=== PATIENT | female | born 1945 | race Caucasian/White ===

== ENCOUNTER 2019-08-08 15:03 | Inpatient (IN) | payer MEDICARE, SELFPAY ==
[2019-08-08] VITALS (10 sets, daily range): BP systolic 128–147; BP diastolic 46–95; PULSE 76–87; RESP 16–21; TEMP 36.4–37.3; O2SAT 94–98
--- NOTE | ~2019-08-08 | US_ITS ---
EXAMINATION:US venous doppler LE BI INDICATION:Leg edema TECHNIQUE: Multiple grayscale, color flow and Doppler images of the lower extremity deep venous syste ms were obtained and reviewed. COMPARISON:No prior studies for comparison. FINDINGS: The common femoral, superficial femoral and popliteal veins demonstrate normal respiratory variation, augmentation and compressibility. Color flow is also seen within the posterior tibial, pe roneal, greater saphenous and profunda veins. IMPRESSION: 1: No lower extremity deep venous thrombosis. Reviewed, dictated and finalized at location A.
--- NOTE | ~2019-08-08 | XR_ITS ---
XR chest 1V portable DATE: 08/08/2019 15:46 INDICATION: Shortness of breath and fever for 3 weeks. Cough, congestion. TECHNIQUE: Portable upright AP chest on 08/08/2019 at 1547 hours COMPARISON: 04/06/2018 2 view chest 04/09/2018 CT chest FINDINGS: There is prominent elevation of the right leaf of the diaphragm and/or subpulmonic pleural fluid there is infiltrate and atelectasis in the right mid to lower lung. The left lung is clear. No left pleural effusion is evident. Heart size appears normal. Aortic calcification. No hilar or mediastinal enlargement is noted. Diffuse osteopenia. IMPRESSION: Elevated right diaphragm and/or right subpulmonic pleural fluid Right mid to lower lung infiltrate and/atelectasis Reviewed, dictated and finalized at location A.
--- NOTE | 2019-08-08 15:23 | ECG_ITS ---
Measurements Intervals [place] Rate: 82 P: 68 MN: 134 QRS: -15 QRSD: 97 T: 49 QT: 386 QTc: 452 Interpretive Statements SINUS RHYTHM ATRIAL PREMATURE COMPLEXES POSSIBLE LEFT ATRIAL ENLARGEMENT DELAYED PRECORDIAL R/S TRANSITION BASELINE ARTIFACT- I, II, III, AVR, AVL, AVF, V1-V6 BORDERLINE ECG Electronically Signed On 08-08-2019 16:09:30 CDT by Honorio Mccarthy D.O.
[2019-08-08 16:00] LABS: Basophils Percent Auto 0.2 % (0.2-1.2); Eosinophils Percent Auto 0.1 % (0-4.4); Hematocrit 29.1 % (37.0-47.0); Hemoglobin 9.7 g/dL (12.0-15.0); Immature Granulocyte Absolute 0.17 K/mm3 (0.00-0.031); Immature Granulocyte Percent A 0.9 % (0-0.5); Lymphocytes Absolute Auto 0.93 K/mm3 (0.9-3.2); Mean Corpuscular HGB Conc 33.3 g/dl (32-36); Mean Corpuscular Hemoglobin 28.4 pg (26-34); Mean Corpuscular Volume 85.1 fl (80-100); Mean Platelet Volume 9.9 fl (7.4-10.4); Monocytes Absolute Auto 1.3 K/mm3 (0.1-0.6); Monocytes Percent Auto 7.2 % (2.6-8.5); Neutrophils Absolute Auto 16.2 K/mm3 (1.3-6.7); Neutrophils Percent Auto 86.6 % (45.5-73.1); Platelet Count Result 412 k/mm3 (150-375); Red Blood Count 3.42 M/mm3 (4.2-5.4); Red Cell Distribution Width 13.9 % (11.5-14.5); White Blood Count 18.7 K/mm3 (4.5-10.0)
--- NOTE | 2019-08-08 16:03 | ED.FEVER ---
HPI - Fever General Chief Complaint: Fever Stated Complaint: fever Time Seen by Provider: 08/08/19 15:22 History of Present Illness HPI Narrative: Patient presents with 3 weeks of off-and-on fever. Up to 100.2. She has had shortness of breath and cough, with sputum production. She is also had swelling in her lower legs and feet for 4-week. She has no sores, no urinary frequency or dysuria. She has had no wheezing, despite her COPD?asthma. Her appetite is fine, bowels are moving. She feels weak, and shortness of breath increases with any activity at all. Her mother had congestive heart failure. She has been taking ibuprofen and Tylenol for the fever. She has had chills and sweats with it. MD elicited complaint: fever, malaise and weakness Pertinent past history: other (COPD?asthma) Onset (ago): week(s) Measured temperature: 100.4 F Context: other (None) Exacerbating factors: other (Walking) Relieving factors: nothing Associated symptoms: chills, cough and other (Sweats) Treatments prior to arrival fever: none Related Data Home Medications Medication Instructions Recorded Confirmed amlodipine 5 mg tablet 5 mg PO DAILY 01/09/19 07/24/19 cholecalciferol (vitamin D3) 25 1,000 unit PO DAILY 01/09/19 07/24/19 mcg (1,000 unit) capsule fexofenadine 180 mg tablet 180 mg PO DAILY 01/09/19 07/24/19 sertraline 50 mg tablet 50 mg PO DAILY 01/09/19 07/24/19 Allergies Allergy/AdvReac Type Severity Reaction Status Date / Time azithromycin Allergy Mild Unknown Verified 08/08/19 15:09 erythromycin base Allergy Mild Unknown Verified 08/08/19 15:09 Latex, Natural Rubber Allergy Mild Rash Verified 08/08/19 15:09 Aminoglycosides Allergy Unknown Unknown Verified 08/08/19 15:09 bacitracin Allergy Unknown Unknown Verified 08/08/19 15:09 neomycin Allergy Unknown Unknown Verified 08/08/19 15:09 polymyxin B Allergy Unknown Unknown Verified 08/08/19 15:09 PLASTICS Allergy Mild Unknown Uncoded 08/08/19 15:09 Review of Systems Review of Systems: Narrative: CONSTITUTIONAL: She has had fever, chills, and sweats. EYES: Denies visual changes, redness, or discharge. ENT: Denies rhinorrhea, congestion, sore throat, or otalgia. CARDIOVASCULAR: Denies chest pain, palpitations, or edema. RESPIRATORY: She has cough and dyspnea. GASTROINTESTINAL: Denies abdominal pain, nausea, vomiting, or diarrhea. GENITOURINARY: Denies dysuria or hematuria. SKIN: Denies rash or itching. MUSCULOSKELETAL: Denies back pain, joint pain, or myalgia. NEUROLOGIC: Denies headache, numbness, or weakness. PSYCHIATRIC: Denies anxiety or depression. All systems reviewed & are unremarkable except as noted in HPI and below PMFSH Past Medical History Medical History Anxiety Basal cell carcinoma 2015 - nose Chronic neck pain COPD with asthma Environmental allergies Essential (primary) hypertension Hypertension Squamous cell carcinoma of skin of right lower extremity 2002 Vitamin D deficiency Surgical History Surgical History History of colon resection 1997 Social History Social History Smoking packs per day: 0.75 Smoking cigarettes per day: 15.0 Years smoked: 56 Smoking pack-years: 42.00 Smoking status: Current every day smoker Tobacco type: cigarettes Second hand tobacco smoke exposure: Yes Additional smoking assessment comments: maybe 5 cigarettes Alcohol intake: never Substance use: never Substance use type: does not use Gender identity (if verbalized by the patient): Female Exam Narrative: Exam Narrative: GENERAL: Well-appearing, well-nourished, and in no acute distress. HEAD: Normocephalic, atraumatic. EYES: PERRLA and EOMI. ENT: Nares clear, no rhinorrhea or epistaxis. Mucous membranes moist. NECK: Supple. CHEST: No respiratory distress. Rhonchi in the posterior right HEA
[2019-08-08 16:07] LABS: Add Urine Microscopic? YES; Appearance Urine Clear (Clear); Bacteria Urine Trace /hpf; Bilirubin Urine Negative (Negative); Blood Urine Negative (Negative); Color Urine Straw (Yellow); Glucose Urine UA Negative (Negative); Ketones Urine Negative (Negative); Leukocyte Esterase Ur 2+ LEU/UL (Negative); Nitrate Urine Negative (Negative); Protein Urine Negative (Negative); RBC Urine 0-2 /hpf (0-2); Specific Grav Ur 1.005 (1.001-1.035); Squamous Epithelial Cell Urine Occasional /hpf (Few); Urobilinogen Urine Negative mg/dL (<2.0)
[2019-08-08 16:13] LABS: INR 1.3; Prothrombin Time 15.5 Seconds (11.1-14.7)
[2019-08-08 16:13] LABS: Lactic Acid Reflex 0.7 mmol/L (0.7-2.1)
[2019-08-08 16:14] LABS: Partial Thromboplastin Time 32.2 SECONDS (22.3-36.8)
[2019-08-08 16:17] LABS: D Dimer 2.68 ug/mL (<0.48)
[2019-08-08 16:23] LABS: Alveolar/Arterial O2 Gradient 30.8 mmHg; Base Excess ABG 2.3 mEq/l (+/-2.0); Fractional Inspired Oxygen 21 %; HCO3 ABG 24.9 mEq/l (22.0-26.0); Oxygen Content ABG 14.4 %vol (16.0-22.0); Oxyhemoglobin 95.1 % THb (90.0-100.0); PCO2 ABG 31.6 mmHg (35.0-45.0); PO2 ABG 81.1 mmHg (80.0-100.0); PO2 FiO2 Ratio Arterial Blood 3.86 %; Total Hemoglobin 10.7 g/dL (12.0-18.0)
[2019-08-08 16:25] LABS: Device ROOM AIR; Modified Allen's Test Pass; Site Drawn LEFT RADIAL
[2019-08-08 16:26] LABS: NT Pro B Type Natriuretic Pept 2660 PG/ML (5-100); Troponin I < 0.012 ng/mL (0.000-0.034)
[2019-08-08 16:29] LABS: pH ABG 7.514 (7.350-7.450)
[2019-08-08 16:30] LABS: Alanine Aminotransferase 29 U/L (4-35); Albumin Level 3.1 g/dL (3.5-5.1); Alkaline Phosphatase 125 U/L (38-126); Aspartate Amino Transferase 23 U/L (14-36); Bilirubin,Total 0.8 mg/dL (0.2-1.3); Blood Urea Nitrogen 10 mg/dL (7-17); CRP 21.8 mg/dL (<1.0); Calcium 8.5 mg/dL (8.4-10.2); Carbon Dioxide 25 mmol/L (22-30); Chloride 89 mmol/L (98-107); Estimated Glomerular Filt Rate > 60; Glucose 143 mg/dL (65-105); Potassium 3.4 mmol/L (3.4-5.0); Sodium 123 mmol/L (137-145)
--- NOTE | 2019-08-08 16:47 | PC.NURSE ---
pt moved from room 4 to room 6
[2019-08-08] MEDS: FUROSEMIDE INJ 40 MG/4 ML VIAL IV PUSH (16:58)
--- NOTE | 2019-08-08 18:34 | ADMGEN ---
This patient, Radha Loja, was admitted to [facility] S[facility] Room 331-01. Patient/family oriented to hospital policies and general routines including ID bracelet, bed and alarms, visiting hours, pain management, procedures, bathroom and other care routines, personal items, smoking policy, room service/diet, and visiting hours. Valuables list has been completed. Information on how to activate the Rapid Response Team has been discussed. Patient/Family are encouraged to report perceived risks to care and to ask questions if they do not understand what they are told or what they should do.
[2019-08-08 19:48] LABS: Troponin I < 0.012 ng/mL (0.000-0.034)
[2019-08-08 22:18] LABS: Troponin I < 0.012 ng/mL (0.000-0.034)
--- NOTE | 2019-08-08 23:45 | PM.IMHP ---
H&P: HPI History of Present Illness Chief complaint: pneumonia/and new CHF/ and tested for COVID Narrative: Radha Loja is a 74 year old female who has a past medical history of asthma. The patient stated that she has had a low-grade fever on and off for 2-3 weeks. She said somewhere around 100. She has had a loose cough.She was short of breath she also had increased swelling in her lower extremities over the last 3-4 weeks. No previous history of any CHF for DVT. No sore throat or headache no body aches she has been taking ibuprofen and Tylenol for the fever. She does have chills and she has been having night sweats. Chest x-ray was read as elevated right diaphragm and or some pulmonic pleural fluid right mid to lower lung infiltrate and atelectasis. The patient is being tested for covid 19. She has not been exposed to any sick contacts. She is and lives with her son and [id number]. Ceftriaxone in the emergency room and IV Lasix. She said her feet are starting to go down with the swelling since she got the Lasix. White count is 18.7. H&H is 9.7 and 29.1. Patient has some arterial blood gases performed in her pH was 7.514 and her pCO2 was 31.6. She was placed on 2 L per nasal cannula. Sodium was 123. CRP is 21.8. BNP is 2660. Patient is being admitted for community-acquired pneumonia and possible CHF. Date of service 08/08/2019 Review of Systems Review of Systems: All systems reviewed & are unremarkable except as noted in HPI and below Constitutional: Constitutional: Reports as per HPI and Reports no additional constitutional complaints Eyes: Eyes: Reports as per HPI and Reports no additional eye complaints ENT: Reports system reviewed and no additional complaints, except as documented and Reports Normal hearing present Cardiovascular: Cardiovascular: Reports no additional cardiovascular complaints Respiratory: Respiratory: Reports no additional respiratory complaints and Reports no additional respiratory complaints Gastrointestinal: Gastrointestinal: Reports as per HPI and Reports no additional gastrointestinal complaints Musculoskeletal: Musculoskeletal: Reports no additional musculoskeletal complaints Integumentary/Breasts: Skin/Breast: Reports system reviewed and no additional complaints, except as docu and Reports as per HPI Neurologic: Reports system reviewed and no additional complaints, except as documented, Reports as per HPI and Reports Normal hearing present Psychiatric: Psychiatric: Reports no additional psychiatric complaints and Reports as per HPI Endocrine: Endocrine: Reports no additional endocrine complaints Hematologic/Lymphatic: Hematologic/Lymphatic: Reports no additional hematologic/lymphatic complaints Allergic/Immunologic: Allergic/Immunologic: Reports no additional allergic/immunologic complaints [facility] Past Medical History Medical History (Updated 08/08/19 @ 23:55 by Lorraine Burks NP) Anxiety Asthma Basal cell carcinoma 2015 - nose Chronic neck pain Colon polyps COPD with asthma Environmental allergies Essential (primary) hypertension Hypertension Squamous cell carcinoma of skin of right lower extremity 2002 Vitamin D deficiency Surgical History Surgical History (Updated 08/08/19 @ 23:51 by Lorraine Burks NP) History of colon resection 1997 due to large colon polyps History of removal of pigmented skin lesion Removed from her nose and leg 2003 and 2000 Family History Family History (Updated 08/08/19 @ 23:52 by Lorraine Burks NP) Mother Diabetes mellitus Congestive heart disease Hypertension Father Emphysema lung Sibling Diabetes mellitus Social History Social History (Updated 08/08/19 @ 23:53 by Lorraine Burks NP) Social History: The patient is she has 2 children. She smoked for about 50 + years a half pack cigarettes a day. 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 No alcohol no marijuana power health care attorney is her s
[2019-08-09] VITALS (12 sets, daily range): BP systolic 118–150; BP diastolic 47–72; PULSE 72–102; RESP 16–20; TEMP 36.4–37.5; O2SAT 91–99; BMI 26.5
--- NOTE | 2019-08-09 | ECHO_ITS ---
Patient Info Name: Radha Loja Age: 74 years : 1945 Gender: Female Ht: 63 in Wt: 150 lbs BSA: 1.76 m2 HR: 80 bpm BP: 130 / 47 mmHg Heart Rhythm: Sinus Rhythm Technical Quality: Good Exam Date: 08/09/2019 1:58 PM Exam Location: [facility] Patient Status: Inpatient Admit Date: 08/08/2019 Staff Ordering Physician: Lorraine Burks NP Concrete Block Molder: Robinson Melendrez RDCS Attending Provider: Kiah Deutsch PA-C Referring Physician: Kimmie MCKENZIE; Exam Type: CA echo doppler color flow Study Info Indications J81.0 - Acute pulmonary edema Complete two-dimensional, color flow and Doppler transthoracic echocardiogram is performed. History/Risk Factors Pneumonia; new CHF, SOB, edema, HTN. Summary 1. Left ventricular chamber size and systolic function are normal with no regional wall motion abnormalities with an estimated ejection fraction of >70%. Mild left ventricular hypertrophy and grade 2 diastolic dysfunction are noted. 2. Left atrial chamber dimension is mildly enlarged. 3. No pulmonary hypertension, estimated pulmonary arterial systolic pressure is 30 mmHg. 4. Dilated inferior vena cava with >50% collapse upon inspiration consistent with elevated right atrial pressure, 5 mmHg. 5. No significant valve disease. 6. Normal sinus rhythm. Left Ventricle Left ventricular chamber dimension is normal. Left ventricular systolic function is normal, estimated at >70%. There is mildly increased left ventricular wall thickness. Left ventricular septal wall motion is normal. The left ventricular diastolic function is grade II diastolic dysfunction. Left ventricular chamber size and systolic function are normal with no regional wall motion abnormalities with an estimated ejection fraction of >70%. Mild left ventricular hypertrophy and grade 2 diastolic dysfunction are noted. Right Ventricle Right ventricular chamber dimension is normal. Right ventricular systolic function is normal. Left Atria Left atrial chamber dimension is mildly enlarged. Right Atria Right atrial chamber dimension is normal. Aortic Valve The aortic valve is trileaflet. There is no aortic valve sclerosis. There is no aortic valve stenosis. There is no aortic valve regurgitation. Pulmonic Valve The pulmonic valve is normal. There is no pulmonic valve stenosis. There is trace pulmonic regurgitation. Mitral Valve The mitral valve has normal leaflets. There is no mitral valve stenosis. There is trace mitral valve regurgitation. Tricuspid Valve The tricuspid valve leaflets are normal. There is no significant tricuspid valve stenosis. There is trace tricuspid valve regurgitation. No pulmonary hypertension, estimated pulmonary arterial systolic pressure is 30 mmHg. Pericardium/Pleural The pericardium appears normal. There is no pericardial effusion. Inferior Vena Cava Dilated inferior vena cava with >50% collapse upon inspiration consistent with elevated right atrial pressure, 5 mmHg. Aorta The aortic root size at the sinus of Valsalva is normal. The prox ascending aorta size is normal. Left Ventricular Outflow Tract Name Value Normal LVOT 2D LVOT Diameter
[2019-08-09 07:09] LABS: Basophils Absolute Auto 0.1 K/mm3 (0.0-0.1); Basophils Percent Auto 0.4 % (0.2-1.2); Eosinophils Percent Auto 0.1 % (0-4.4); Hematocrit 28.3 % (37.0-47.0); Hemoglobin 9.5 g/dL (12.0-15.0); Immature Granulocyte Absolute 0.17 K/mm3 (0.00-0.031); Lymphocytes Absolute Auto 0.96 K/mm3 (0.9-3.2); Lymphocytes Percent Auto 5.8 % (18.3-44.2); Mean Corpuscular HGB Conc 33.6 g/dl (32-36); Mean Corpuscular Hemoglobin 28.3 pg (26-34); Mean Corpuscular Volume 84.2 fl (80-100); Mean Platelet Volume 9.7 fl (7.4-10.4); Monocytes Absolute Auto 1.5 K/mm3 (0.1-0.6); Monocytes Percent Auto 9.3 % (2.6-8.5); Neutrophils Absolute Auto 13.8 K/mm3 (1.3-6.7); Neutrophils Percent Auto 83.4 % (45.5-73.1); Platelet Count Result 415 k/mm3 (150-375); Red Blood Count 3.36 M/mm3 (4.2-5.4); Red Cell Distribution Width 13.8 % (11.5-14.5); White Blood Count 16.6 K/mm3 (4.5-10.0)
[2019-08-09 07:26] LABS: Lactic Acid 0.6 mmol/L (0.7-2.1)
[2019-08-09] MEDS: ALBUTEROL SULFATE (*SP) AEROSOL 1 PUFF 2 PUFF INHALATION ×3 (07:31→23:00)
[2019-08-09 08:06] LABS: Alanine Aminotransferase 27 U/L (4-35); Alkaline Phosphatase 110 U/L (38-126); Aspartate Amino Transferase 24 U/L (14-36); Bilirubin,Total 0.7 mg/dL (0.2-1.3); Blood Urea Nitrogen 9 mg/dL (7-17); Calcium 7.9 mg/dL (8.4-10.2); Carbon Dioxide 28 mmol/L (22-30); Chloride 85 mmol/L (98-107); Estimated CRCL calculation 69 ml/min; Estimated Glomerular Filt Rate > 60; Glucose 126 mg/dL (65-105); Magnesium 1.5 mg/dL (1.6-2.3); Sodium 122 mmol/L (137-145)
[2019-08-09] MEDS: MONTELUKAST SODIUM 10 MG TABLET PO (08:30)
[2019-08-09] MEDS: CHOLECALCIFEROL 1,000 UNIT TABLET 1000 UNITS PO (08:30)
[2019-08-09] MEDS: LORATADINE 10 MG TABLET PO (08:30)
[2019-08-09] MEDS: IRBESARTAN 150 MG TABLET BY MOUTH (08:30)
[2019-08-09] MEDS: hydrALAZINE HCL 50 MG TABLET BY MOUTH ×3 (08:30→17:14)
[2019-08-09] MEDS: PIROXICAM 10 MG CAPSULE PO (08:31)
[2019-08-09] MEDS: METOPROLOL SUCCINATE EXT REL 50 MG TABCR BY MOUTH (08:31)
[2019-08-09] MEDS: AMLODIPINE BESYLATE 5 MG TABLET PO (08:31)
[2019-08-09] MEDS: SERTRALINE HCL 50 MG TABLET PO (08:31)
[2019-08-09] MEDS: FUROSEMIDE INJ 40 MG/4 ML VIAL IV PUSH (08:31)
[2019-08-09 08:34] LABS: Thyroid Stimulating Hormone Reflex 0.964 uIU/mL (0.465-4.68)
[2019-08-09 13:02] LABS: SARS-CoV-2 RNA PCR Negative
--- NOTE | 2019-08-09 15:43 | P.PNIM_ITS ---
Progress Note: A&P Assessment and Plan (1) CAP (community acquired pneumonia): Code(s): J18.9 - Pneumonia, unspecified organism Status: Acute Assessment and Plan: She presented with cough, SOB, and fever with T-max 100.2?. Chest x-ray shows right mid to lower lung infiltrate. She complains of productive cough. WBC is 16.6. She remains afebrile. She is maintaining adequate oxygenation on room air. * Patient was initially started on Levaquin and vancomycin. Plan to transition to Rocephin and doxycycline for community-acquired pneumonia. Patient is allergic to azithromycin. * Preliminary blood cultures revealed NGTD. Await final cultures. * Sputum culture has been ordered and will attempt collection * Order urine Legionella and pneumococcal antigens * Continue supportive care with albuterol as needed and Mucinex (2) Suspected COVID-19 virus infection: Code(s): Z20.828 - Contact with and (suspected) exposure to other viral communicable d iseases Status: Acute Assessment and Plan: * Negative COVID test on 08/08/2019. (3) CHF (congestive heart failure): Qualifiers: Heart failure chronicity: unspecified Heart failure type: unspecified Qualified Code(s): I50.9 - Heart failure, unspecified Code(s): I50.9 - Heart failure, unspecified Status: Acute Assessment and Plan: She has gradually developed pedal edema over the past 3 weeks. BNP was elevated at 2660. There was no cardiomegaly noted on chest x-ray. * Continue IV Lasix * Await results of echo * Continue heart healthy diet * Continue metoprolol (4) Anxiety: Code(s): F41.9 - Anxiety disorder, unspecified Status: Acute Assessment and Plan: Stable at this time * Continue Zoloft. (5) Essential (primary) hypertension: Code(s): I10 - Essential (primary) hypertension Status: Acute Assessment and Plan: Blood pressures were reviewed and elevated initially but have since become a low-normal. Blood pressure today was 132/72. * Continue metoprolol, hydralazine, and amlodipine * Monitor blood pressures closely. Will hold antihypertensives as needed if blood pressures continue to be soft. * Irbesartan has been held in light of hyponatremia. (6) Asthma: Code(s): J45.909 - Unspecified asthma, uncomplicated Status: Chronic Assessment and Plan: Patient has a history of asthma but states that is generally well controlled. She is not wheezing on exam. * Continue with albuterol and budesonide. * Continue to monitor (7) Hyponatremia: Code(s): E87.1 - Hypo-osmolality and hyponatremia Status: Acute Assessment and Plan: Her sodium is low at 122. This seems to be a chronic and baseline appears to be 125. This may be due to SSRI use. She is also on Lasix and irbesartan which may be contributing. * Check urine sodium and urine creatinine to determine FENa * Would like to hold on IV sodium chloride given diuresis. Will consider fluid restriction if needed if levels continue to decline. * Hold irbesartan * Continue to monitor sodium levels closely (8) Hypokalemia: Code(s): E87.6 - Hypokalemia Status: Acute Assessment and Plan: Potassium was low at 3.0 this morning. * Replace potassium and continue to supplement as necessary * Continue to monitor potassium levels closely Subjective Date/time seen: 08/09/19 15:43 Interval history: Date of service
--- NOTE | 2019-08-09 15:43 | PM.IMPN ---
Progress Note: A&P Assessment and Plan (1) CAP (community acquired pneumonia): Code(s): J18.9 - Pneumonia, unspecified organism Status: Acute Assessment and Plan: She presented with cough, SOB, and fever with T-max 100.2?. Chest x-ray shows right mid to lower lung infiltrate. She complains of productive cough. WBC is 16.6. She remains afebrile. She is maintaining adequate oxygenation on room air. Patient was initially started on Levaquin and vancomycin. Plan to transition to Rocephin and doxycycline for community-acquired pneumonia. Patient is allergic to azithromycin. Preliminary blood cultures revealed NGTD. Await final cultures. Sputum culture has been ordered and will attempt collection Order urine Legionella and pneumococcal antigens Continue supportive care with albuterol as needed and Mucinex (2) Suspected COVID-19 virus infection: Code(s): Z20.828 - Contact with and (suspected) exposure to other viral communicable diseases Status: Acute Assessment and Plan: Negative COVID test on 08/08/2019. (3) CHF (congestive heart failure): Qualifiers: Heart failure chronicity: unspecified Heart failure type: unspecified Qualified Code(s): I50.9 - Heart failure, unspecified Code(s): I50.9 - Heart failure, unspecified Status: Acute Assessment and Plan: She has gradually developed pedal edema over the past 3 weeks. BNP was elevated at 2660. There was no cardiomegaly noted on chest x-ray. Continue IV Lasix Await results of echo Continue heart healthy diet Continue metoprolol (4) Anxiety: Code(s): F41.9 - Anxiety disorder, unspecified Status: Acute Assessment and Plan: Stable at this time Continue Zoloft. (5) Essential (primary) hypertension: Code(s): I10 - Essential (primary) hypertension Status: Acute Assessment and Plan: Blood pressures were reviewed and elevated initially but have since become a low-normal. Blood pressure today was 132/72. Continue metoprolol, hydralazine, and amlodipine Monitor blood pressures closely. Will hold antihypertensives as needed if blood pressures continue to be soft. Irbesartan has been held in light of hyponatremia. (6) Asthma: Code(s): J45.909 - Unspecified asthma, uncomplicated Status: Chronic Assessment and Plan: Patient has a history of asthma but states that is generally well controlled. She is not wheezing on exam. Continue with albuterol and budesonide. Continue to monitor (7) Hyponatremia: Code(s): E87.1 - Hypo-osmolality and hyponatremia Status: Acute Assessment and Plan: Her sodium is low at 122. This seems to be a chronic and baseline appears to be 125. This may be due to SSRI use. She is also on Lasix and irbesartan which may be contributing. Check urine sodium and urine creatinine to determine FENa Would like to hold on IV sodium chloride given diuresis. Will consider fluid restriction if needed if levels continue to decline. Hold irbesartan Continue to monitor sodium levels closely (8) Hypokalemia: Code(s): E87.6 - Hypokalemia Status: Acute Assessment and Plan: Potassium was low at 3.0 this morning. Replace potassium and continue to supplement as necessary Continue to monitor potassium levels closely Subjective Date/time seen: 08/09/19 15:43 Interval history: Date of service: 08/09/2019 She reports she is doing well today. She endorses productive cough and shortness of breath which occurs at rest, and she noted is worse after an episode of coughing. She does also have some dyspnea on exertion when she walks to the bathroom. She denies chest pain, orthopnea or palpitations. She denies subjective fever or chills. She denies abdominal pain, nausea, or vomiting. She had a bowel movement this morning. She is urinating regularly and denies dy
[2019-08-09] MEDS: SODIUM CHLORIDE 0.9% IV 1,000 ML 70 ML IV CONT (17:10)
[2019-08-09] MEDS: POTASSIUM CHLORIDE 20 MEQ TABLET 40 MEQ PO (17:13)
[2019-08-09 18:41] LABS: Sodium 120 mmol/L (137-145)
[2019-08-09 19:28] LABS: Creatinine Urine 86.5 mg/dL
[2019-08-09 19:32] LABS: Sodium Urine Random 15 meq/L
[2019-08-09] MEDS: SODIUM CHLORIDE 1 GM TABLET PO (21:27)
[2019-08-09 21:30] LABS: Sodium 119 mmol/L (137-145)
[2019-08-10] VITALS (12 sets, daily range): BP systolic 130–139; BP diastolic 47–60; PULSE 78–88; RESP 16–20; TEMP 36.4–36.7; O2SAT 93–95
[2019-08-10 08:23] LABS: Basophils Percent Auto 0.2 % (0.2-1.2); Hematocrit 30.2 % (37.0-47.0); Hemoglobin 10.1 g/dL (12.0-15.0); Immature Granulocyte Absolute 0.29 K/mm3 (0.00-0.031); Immature Granulocyte Percent A 1.9 % (0-0.5); Lymphocytes Absolute Auto 0.82 K/mm3 (0.9-3.2); Lymphocytes Percent Auto 5.3 % (18.3-44.2); Mean Corpuscular HGB Conc 33.4 g/dl (32-36); Mean Corpuscular Hemoglobin 28.1 pg (26-34); Mean Corpuscular Volume 83.9 fl (80-100); Mean Platelet Volume 9.8 fl (7.4-10.4); Monocytes Absolute Auto 1.3 K/mm3 (0.1-0.6); Monocytes Percent Auto 8.3 % (2.6-8.5); Neutrophils Absolute Auto 13.1 K/mm3 (1.3-6.7); Neutrophils Percent Auto 84.3 % (45.5-73.1); Platelet Count Result 432 k/mm3 (150-375); Red Cell Distribution Width 13.6 % (11.5-14.5); White Blood Count 15.6 K/mm3 (4.5-10.0)
[2019-08-10 08:36] LABS: Alanine Aminotransferase 32 U/L (4-35); Albumin Level 3.2 g/dL (3.5-5.1); Alkaline Phosphatase 117 U/L (38-126); Aspartate Amino Transferase 32 U/L (14-36); Bilirubin,Total 0.8 mg/dL (0.2-1.3); Blood Urea Nitrogen 8 mg/dL (7-17); Calcium 8.1 mg/dL (8.4-10.2); Carbon Dioxide 30 mmol/L (22-30); Chloride 82 mmol/L (98-107); Estimated CRCL calculation 69 ml/min; Estimated Glomerular Filt Rate > 60; Glucose 133 mg/dL (65-105); Magnesium 1.5 mg/dL (1.6-2.3); Potassium 3.2 mmol/L (3.4-5.0); Sodium 121 mmol/L (137-145)
[2019-08-10] MEDS: SODIUM CHLORIDE 0.9% IV 1,000 ML 75 ML IV CONT (08:49)
[2019-08-10] MEDS: LORATADINE 10 MG TABLET PO (08:54)
[2019-08-10] MEDS: PIROXICAM 10 MG CAPSULE PO (08:54)
[2019-08-10] MEDS: hydrALAZINE HCL 50 MG TABLET BY MOUTH ×3 (08:54→17:46)
[2019-08-10] MEDS: MONTELUKAST SODIUM 10 MG TABLET PO (08:54)
[2019-08-10] MEDS: AMLODIPINE BESYLATE 5 MG TABLET PO (08:54)
[2019-08-10] MEDS: CHOLECALCIFEROL 1,000 UNIT TABLET 1000 UNITS PO (08:54)
[2019-08-10] MEDS: METOPROLOL SUCCINATE EXT REL 50 MG TABCR BY MOUTH (08:55)
[2019-08-10] MEDS: SODIUM CHLORIDE 1 GM TABLET PO ×2 (08:55→17:46)
[2019-08-10 09:10] LABS: Vancomycin Trough 10.4 ug/mL (10.0-20.0)
[2019-08-10 10:20] LABS: Sodium 119 mmol/L (137-145)
--- NOTE | 2019-08-10 11:36 | P.PNIM_ITS ---
Progress Note: A&P Assessment and Plan (1) CAP (community acquired pneumonia): Code(s): J18.9 - Pneumonia, unspecified organism Status: Acute Assessment and Plan: She presented with cough, SOB, and fever with T-max 100.2?. Chest x-ray shows right mid to lower lung infiltrate. She complains of productive cough. WBC is 16.6. She remains afebrile. She is maintaining adequate oxygenation on room air. * Continue Rocephin and doxycycline for community-acquired pneumonia initiated on 08/09/19. Patient is allergic to azithromycin. * Preliminary blood cultures revealed NGTD. Await final cultures. * Preliminary sputum culture shows moderate WBC and mixed bacterial noelle. Await final * Urine Legionella and pneumococcal antigens are pending * Continue supportive care with Mucinex, Tylenol, and albuterol as needed (2) Suspected COVID-19 virus infection: Code(s): Z20.828 - Contact with and (suspected) exposure to other viral communicable diseases Status: Acute Assessment and Plan: * Negative COVID test on 08/08/2019. (3) Grade II diastolic dysfunction: Code(s): I51.9 - Heart disease, unspecified Status: Acute Assessment and Plan: Evident on echo on 08/08 as well as mild LVH. LVEF is >70%. She has gradually developed pedal edema over the past 3 weeks. BNP was elevated at 2660. There was no cardiomegaly noted on chest x-ray. * IV Lasix has been held today given hyponatremia. Plan to resume as soon as clinically appropriate * Continue heart healthy diet * Continue metoprolol. Irbesartan is on hold due to hyponatremia (4) Hyponatremia: Code(s): E87.1 - Hypo-osmolality and hyponatremia Status: Acute Assessment and Plan: This seems to be a chronic and baseline appears to be 125. This may be due to SSRI use. She is also on Lasix and irbesartan which may be contributing. Sodium was low at 119 last night and has since fluctuated between 119-121. Urine sodium is 15 and FENa is less than 1% * Continue to monitor sodium every 4 hours * Continue cautious IV sodium chloride given risk for fluid overload in light of diastolic dysfunction. * Hold irbesartan, furosemide, and sertraline (5) Hypokalemia: Code(s): E87.6 - Hypokalemia Status: Acute Assessment and Plan: Potassium was low at 3.2 this morning. * Replace potassium and continue to supplement as necessary * Continue to monitor potassium levels closely (6) Essential (primary) hypertension: Code(s): I10 - Essential (primary) hypertension Status: Acute Assessment and Plan: Blood pressures were reviewed and elevated initially but have since become low- normal. Blood pressure today was 138/60. * Continue metoprolol, hydralazine, and amlodipine * Monitor blood pressures closely. * Irbesartan has been held in light of hyponatremia. (7) Asthma: Code(s): J45.909 - Unspecified asthma, uncomplicated Status: Chronic Assessment and Plan: Patient has a history of asthma but states that is generally well controlled. She is not wheezing on exam. * Continue with albuterol and budesonide. * Continue to monitor (8) Anxiety: Code(s): F41.9 - Anxiety disorder, unspecified Status: Acute Assessment and Plan: Stable at this time * Hold Zoloft given hyponatremia Subjective Date/time seen: 08/10/19 11:36 Interval history: Date of service: 08/10/2019 She reports she is feeling
--- NOTE | 2019-08-10 11:36 | PM.IMPN ---
Progress Note: A&P Assessment and Plan (1) CAP (community acquired pneumonia): Code(s): J18.9 - Pneumonia, unspecified organism Status: Acute Assessment and Plan: She presented with cough, SOB, and fever with T-max 100.2?. Chest x-ray shows right mid to lower lung infiltrate. She complains of productive cough. WBC is 16.6. She remains afebrile. She is maintaining adequate oxygenation on room air. Continue Rocephin and doxycycline for community-acquired pneumonia initiated on 08/09/19. Patient is allergic to azithromycin. Preliminary blood cultures revealed NGTD. Await final cultures. Preliminary sputum culture shows moderate WBC and mixed bacterial noelle. Await final Urine Legionella and pneumococcal antigens are pending Continue supportive care with Mucinex, Tylenol, and albuterol as needed (2) Suspected COVID-19 virus infection: Code(s): Z20.828 - Contact with and (suspected) exposure to other viral communicable diseases Status: Acute Assessment and Plan: Negative COVID test on 08/08/2019. (3) Grade II diastolic dysfunction: Code(s): I51.9 - Heart disease, unspecified Status: Acute Assessment and Plan: Evident on echo on 08/08 as well as mild LVH. LVEF is >70%. She has gradually developed pedal edema over the past 3 weeks. BNP was elevated at 2660. There was no cardiomegaly noted on chest x-ray. IV Lasix has been held today given hyponatremia. Plan to resume as soon as clinically appropriate Continue heart healthy diet Continue metoprolol. Irbesartan is on hold due to hyponatremia (4) Hyponatremia: Code(s): E87.1 - Hypo-osmolality and hyponatremia Status: Acute Assessment and Plan: This seems to be a chronic and baseline appears to be 125. This may be due to SSRI use. She is also on Lasix and irbesartan which may be contributing. Sodium was low at 119 last night and has since fluctuated between 119-121. Urine sodium is 15 and FENa is less than 1% Continue to monitor sodium every 4 hours Continue cautious IV sodium chloride given risk for fluid overload in light of diastolic dysfunction. Hold irbesartan, furosemide, and sertraline (5) Hypokalemia: Code(s): E87.6 - Hypokalemia Status: Acute Assessment and Plan: Potassium was low at 3.2 this morning. Replace potassium and continue to supplement as necessary Continue to monitor potassium levels closely (6) Essential (primary) hypertension: Code(s): I10 - Essential (primary) hypertension Status: Acute Assessment and Plan: Blood pressures were reviewed and elevated initially but have since become low-normal. Blood pressure today was 138/60. Continue metoprolol, hydralazine, and amlodipine Monitor blood pressures closely. Irbesartan has been held in light of hyponatremia. (7) Asthma: Code(s): J45.909 - Unspecified asthma, uncomplicated Status: Chronic Assessment and Plan: Patient has a history of asthma but states that is generally well controlled. She is not wheezing on exam. Continue with albuterol and budesonide. Continue to monitor (8) Anxiety: Code(s): F41.9 - Anxiety disorder, unspecified Status: Acute Assessment and Plan: Stable at this time Hold Zoloft given hyponatremia Subjective Date/time seen: 08/10/19 11:36 Interval history: Date of service: 08/10/2019 She reports she is feeling well today. She has no complaints at this time. She does endorse productive cough and stated that she is having a hard time spitting out the secretions, therefore she occasionally swallows some mucus which did cause her to become somewhat nauseous. She feels mildly short of breath when she is coughing but at rest feels comfortable. She denies orthopnea, dyspnea on exertion, palpitations, or chest pain. She denies abdominal pain, cramping, vomiting or diarrhea. S
[2019-08-10 13:10] LABS: Sodium 121 mmol/L (137-145)
[2019-08-10] MEDS: ALBUTEROL SULFATE (*SP) AEROSOL 1 PUFF 2 PUFF INHALATION ×2 (15:45→20:08)
[2019-08-10 16:31] LABS: Sodium 120 mmol/L (137-145)
[2019-08-10] MEDS: ACETAMINOPHEN 325 MG TABLET 650 MG PO ×2 (17:45→22:37)
[2019-08-10] MEDS: POTASSIUM CHLORIDE 20 MEQ TABLET 40 MEQ PO (17:45)
[2019-08-10] MEDS: MAGNESIUM OXIDE 400 MG TABLET PO (17:46)
[2019-08-10 20:03] LABS: Sodium 119 mmol/L (137-145)
[2019-08-10 23:40] LABS: Sodium 120 mmol/L (137-145)
[2019-08-11] VITALS (13 sets, daily range): BP systolic 112–152; BP diastolic 51–76; PULSE 70–97; RESP 16–18; TEMP 36.2–37.2; O2SAT 92–99
[2019-08-11] MEDS: SODIUM CHLORIDE 0.9% IV 1,000 ML 75 ML IV CONT (03:50)
[2019-08-11] MEDS: ALBUTEROL SULFATE (*SP) AEROSOL 1 PUFF 2 PUFF INHALATION ×2 (05:17→13:29)
[2019-08-11 06:42] LABS: Basophils Percent Auto 0.3 % (0.2-1.2); Eosinophils Percent Auto 0.2 % (0-4.4); Hematocrit 30.1 % (37.0-47.0); Hemoglobin 9.8 g/dL (12.0-15.0); Immature Granulocyte Absolute 0.19 K/mm3 (0.00-0.031); Immature Granulocyte Percent A 1.5 % (0-0.5); Lymphocytes Percent Auto 5.4 % (18.3-44.2); Mean Corpuscular HGB Conc 32.6 g/dl (32-36); Mean Corpuscular Hemoglobin 27.7 pg (26-34); Monocytes Absolute Auto 1.3 K/mm3 (0.1-0.6); Monocytes Percent Auto 10.2 % (2.6-8.5); Neutrophils Absolute Auto 10.8 K/mm3 (1.3-6.7); Neutrophils Percent Auto 82.4 % (45.5-73.1); Platelet Count Result 438 k/mm3 (150-375); Red Blood Count 3.54 M/mm3 (4.2-5.4); Red Cell Distribution Width 13.5 % (11.5-14.5); White Blood Count 13.1 K/mm3 (4.5-10.0)
[2019-08-11 06:48] LABS: Alanine Aminotransferase 29 U/L (4-35); Alkaline Phosphatase 115 U/L (38-126); Aspartate Amino Transferase 28 U/L (14-36); Bilirubin,Total 0.6 mg/dL (0.2-1.3); Blood Urea Nitrogen 7 mg/dL (7-17); Calcium 8.2 mg/dL (8.4-10.2); Carbon Dioxide 30 mmol/L (22-30); Chloride 88 mmol/L (98-107); Estimated CRCL calculation 69 ml/min; Estimated Glomerular Filt Rate > 60; Glucose 117 mg/dL (65-105); Magnesium 1.6 mg/dL (1.6-2.3); Potassium 3.2 mmol/L (3.4-5.0); Sodium 126 mmol/L (137-145)
[2019-08-11] MEDS: POTASSIUM CHLORIDE 20 MEQ TABLET 40 MEQ PO (08:03)
[2019-08-11] MEDS: hydrALAZINE HCL 50 MG TABLET BY MOUTH ×3 (08:04→18:23)
[2019-08-11] MEDS: CHOLECALCIFEROL 1,000 UNIT TABLET 1000 UNITS PO (08:04)
[2019-08-11] MEDS: METOPROLOL SUCCINATE EXT REL 50 MG TABCR BY MOUTH (08:04)
[2019-08-11] MEDS: LORATADINE 10 MG TABLET PO (08:05)
[2019-08-11] MEDS: SODIUM CHLORIDE 1 GM TABLET PO ×2 (08:05→16:21)
[2019-08-11] MEDS: MONTELUKAST SODIUM 10 MG TABLET PO (08:05)
[2019-08-11] MEDS: AMLODIPINE BESYLATE 5 MG TABLET PO (08:05)
[2019-08-11] MEDS: PIROXICAM 10 MG CAPSULE PO (08:06)
--- NOTE | 2019-08-11 09:36 | WPDCDIQUERY2 ---
CDI Query Clarification Request - 08/08 CHF, unspecified on problem list - 08/09 CHF no longer on problem list. Grade II diastolic dysfunction, heart disease, unspecified on problem list. Please clarify if CHF was ruled in or ruled out. Also, if ruled in, please clarify type and acuity. <Jillian Parrish RN - Last Filed: 08/11/19 09:40> Provider Comments Send to [facility] <Makayla Lomeli MD - Last Filed: 08/15/19 08:01>
[2019-08-11] MEDS: ACETAMINOPHEN 325 MG TABLET 650 MG PO ×2 (10:05→21:02)
--- NOTE | 2019-08-11 14:59 | P.PNIM_ITS ---
Progress Note: A&P Assessment and Plan (1) CAP (community acquired pneumonia): Code(s): J18.9 - Pneumonia, unspecified organism Status: Acute Assessment and Plan: She presented with cough, SOB, and fever with T-max 100.2?. Chest x-ray shows right mid to lower lung infiltrate. She complains of productive cough. Leukocytosis is improving and she remains afebrile. She is maintaining adequate oxygenation on room air. * Sputum culture demonstrates Pseudomonas aeruginosa with susceptibility pending. She was recently treated with both steroids and antibiotics for COPD exacerbation. * Begin broad spectrum Zosyn and Levaquin. * Discontinue Rocephin and doxycycline initiated on 08/09/19. * Preliminary blood cultures revealed NGTD. Await final cultures. * Sputum culture demonstrates light growth of Pseudomonas aeruginosa. She was recently treated with both steroids and antibiotics for COPD exacerbation. * Urine Legionella and pneumococcal antigens are pending * Continue supportive care with Mucinex, Tylenol, and albuterol as needed (2) Suspected COVID-19 virus infection: Code(s): Z20.828 - Contact with and (suspected) exposure to other viral communicable diseases Status: Acute Assessment and Plan: * Negative COVID test on 08/08/2019. (3) Grade II diastolic dysfunction: Code(s): I51.9 - Heart disease, unspecified Status: Acute Assessment and Plan: Evident on echo on 08/08 as well as mild LVH. LVEF is >70%. She has gradually developed pedal edema over the past 3 weeks. BNP was elevated at 2660. There was no cardiomegaly noted on chest x-ray. * IV Lasix has been held given hyponatremia. Plan to resume as soon as clinically appropriate. * Continue heart healthy diet * Continue metoprolol. Irbesartan is on hold due to hyponatremia (4) Hyponatremia: Code(s): E87.1 - Hypo-osmolality and hyponatremia Status: Acute Assessment and Plan: This seems to be a chronic and baseline appears to be 125. This may be due to SSRI use. She is also on Lasix and irbesartan which may be contributing. Sodium fluctuated between 119-121 yesterday but improved to 126 today. Urine sodium is 15 and FENa is less than 1% * Continue to monitor sodium every 4 hours * Discontinue IV fluids given risk for fluid overload and improvement of sodium. * Hold irbesartan, furosemide, and sertraline (5) Hypokalemia: Code(s): E87.6 - Hypokalemia Status: Acute Assessment and Plan: Potassium was low at 3.2 this morning. * Replace potassium and continue to supplement as necessary * Continue to monitor potassium levels closely (6) Essential (primary) hypertension: Code(s): I10 - Essential (primary) hypertension Status: Acute Assessment and Plan: Blood pressures were reviewed and elevated initially but have since improved and are stable at this time. Blood pressure today was 146/76. * Continue metoprolol, hydralazine, and amlodipine * Monitor blood pressures closely. * Irbesartan has been held in light of hyponatremia. (7) Asthma: Code(s): J45.909 - Unspecified asthma, uncomplicated Status: Chronic (8) Anxiety: Code(s): F41.9 - Anxiety disorder, unspecified Status: Acute Assessment and Plan: Stable at this time * Hold Zoloft given hyponatremia * Begin 0.5 mg Ativan as needed. Patient takes this dose at home, although it is not on her medication list. (9) COPD with asthma: Code(s):
--- NOTE | 2019-08-11 14:59 | PM.IMPN ---
Progress Note: A&P Assessment and Plan (1) CAP (community acquired pneumonia): Code(s): J18.9 - Pneumonia, unspecified organism Status: Acute Assessment and Plan: She presented with cough, SOB, and fever with T-max 100.2?. Chest x-ray shows right mid to lower lung infiltrate. She complains of productive cough. Leukocytosis is improving and she remains afebrile. She is maintaining adequate oxygenation on room air. Sputum culture demonstrates Pseudomonas aeruginosa with susceptibility pending. She was recently treated with both steroids and antibiotics for COPD exacerbation. Begin broad spectrum Zosyn and Levaquin. Discontinue Rocephin and doxycycline initiated on 08/09/19. Preliminary blood cultures revealed NGTD. Await final cultures. Sputum culture demonstrates light growth of Pseudomonas aeruginosa. She was recently treated with both steroids and antibiotics for COPD exacerbation. Urine Legionella and pneumococcal antigens are pending Continue supportive care with Mucinex, Tylenol, and albuterol as needed (2) Suspected COVID-19 virus infection: Code(s): Z20.828 - Contact with and (suspected) exposure to other viral communicable diseases Status: Acute Assessment and Plan: Negative COVID test on 08/08/2019. (3) Grade II diastolic dysfunction: Code(s): I51.9 - Heart disease, unspecified Status: Acute Assessment and Plan: Evident on echo on 08/08 as well as mild LVH. LVEF is >70%. She has gradually developed pedal edema over the past 3 weeks. BNP was elevated at 2660. There was no cardiomegaly noted on chest x-ray. IV Lasix has been held given hyponatremia. Plan to resume as soon as clinically appropriate. Continue heart healthy diet Continue metoprolol. Irbesartan is on hold due to hyponatremia (4) Hyponatremia: Code(s): E87.1 - Hypo-osmolality and hyponatremia Status: Acute Assessment and Plan: This seems to be a chronic and baseline appears to be 125. This may be due to SSRI use. She is also on Lasix and irbesartan which may be contributing. Sodium fluctuated between 119-121 yesterday but improved to 126 today. Urine sodium is 15 and FENa is less than 1% Continue to monitor sodium every 4 hours Discontinue IV fluids given risk for fluid overload and improvement of sodium. Hold irbesartan, furosemide, and sertraline (5) Hypokalemia: Code(s): E87.6 - Hypokalemia Status: Acute Assessment and Plan: Potassium was low at 3.2 this morning. Replace potassium and continue to supplement as necessary Continue to monitor potassium levels closely (6) Essential (primary) hypertension: Code(s): I10 - Essential (primary) hypertension Status: Acute Assessment and Plan: Blood pressures were reviewed and elevated initially but have since improved and are stable at this time. Blood pressure today was 146/76. Continue metoprolol, hydralazine, and amlodipine Monitor blood pressures closely. Irbesartan has been held in light of hyponatremia. (7) Asthma: Code(s): J45.909 - Unspecified asthma, uncomplicated Status: Chronic (8) Anxiety: Code(s): F41.9 - Anxiety disorder, unspecified Status: Acute Assessment and Plan: Stable at this time Hold Zoloft given hyponatremia Begin 0.5 mg Ativan as needed. Patient takes this dose at home, although it is not on her medication list. (9) COPD with asthma: Code(s): J44.9 - Chronic obstructive pulmonary disease, unspecified Status: Acute Assessment and Plan: She was recently treated for COPD exacerbation approximately 1 month ago with steroids and antibiotics. COPD puts her at risk for Pseudomonas infection. Continue with albuterol and budesonide. Continue to monitor Subjective Date/time seen: 08/11/19 14:59 Interval history: Date of service: 08/11/2019 She reports
[2019-08-11 15:13] LABS: Potassium 3.2 mmol/L (3.4-5.0); Sodium 124 mmol/L (137-145)
[2019-08-11] MEDS: LORAZEPAM 0.5 MG TABLET PO (16:19)
[2019-08-11] MEDS: POTASSIUM CHLORIDE 20 MEQ TABLET PO (16:20)
[2019-08-11 21:41] LABS: Vancomycin Trough < 5.0 ug/mL (10.0-20.0)
[2019-08-12] VITALS (10 sets, daily range): BP systolic 149–152; BP diastolic 56–83; PULSE 75–97; RESP 18–20; TEMP 36.7–37.2; O2SAT 94–97
[2019-08-12] MEDS: LORAZEPAM 0.5 MG TABLET PO ×2 (01:38→19:56)
[2019-08-12 06:27] LABS: Hematocrit 28.5 % (37.0-47.0); Hemoglobin 9.3 g/dL (12.0-15.0); Mean Corpuscular HGB Conc 32.6 g/dl (32-36); Mean Corpuscular Hemoglobin 27.6 pg (26-34); Mean Corpuscular Volume 84.6 fl (80-100); Mean Platelet Volume 9.5 fl (7.4-10.4); Platelet Count Result 435 k/mm3 (150-375); Red Blood Count 3.37 M/mm3 (4.2-5.4); Red Cell Distribution Width 13.7 % (11.5-14.5); White Blood Count 13.2 K/mm3 (4.5-10.0)
[2019-08-12 06:40] LABS: Blood Urea Nitrogen 6 mg/dL (7-17); Calcium 8.3 mg/dL (8.4-10.2); Carbon Dioxide 27 mmol/L (22-30); Chloride 92 mmol/L (98-107); Estimated CRCL calculation 69 ml/min; Estimated Glomerular Filt Rate > 60; Glucose 120 mg/dL (65-105); Magnesium 1.6 mg/dL (1.6-2.3); Potassium 3.4 mmol/L (3.4-5.0); Sodium 122 mmol/L (137-145)
[2019-08-12] MEDS: hydrALAZINE HCL 50 MG TABLET BY MOUTH ×3 (07:39→16:35)
[2019-08-12] MEDS: PIROXICAM 10 MG CAPSULE PO (07:39)
[2019-08-12] MEDS: SODIUM CHLORIDE 1 GM TABLET PO ×2 (07:41→16:35)
[2019-08-12] MEDS: METOPROLOL SUCCINATE EXT REL 50 MG TABCR BY MOUTH (07:42)
[2019-08-12] MEDS: MONTELUKAST SODIUM 10 MG TABLET PO (07:42)
[2019-08-12] MEDS: AMLODIPINE BESYLATE 5 MG TABLET PO (07:43)
[2019-08-12] MEDS: LORATADINE 10 MG TABLET PO (07:44)
[2019-08-12] MEDS: CHOLECALCIFEROL 1,000 UNIT TABLET 1000 UNITS PO (07:44)
[2019-08-12 08:30] LABS: Sodium 124 mmol/L (137-145)
--- NOTE | 2019-08-12 09:13 | PM.IMPN ---
Progress Note: A&P Assessment and Plan (1) CAP (community acquired pneumonia): Code(s): J18.9 - Pneumonia, unspecified organism Status: Acute Assessment and Plan: She presented with cough, SOB, and fever with T-max 100.2?. Chest x-ray shows right mid to lower lung infiltrate. She complains of productive cough. Leukocytosis is improving and she remains afebrile. She is maintaining oxygenation % 2 L, which can be weaned. Sputum culture demonstrates Pseudomonas aeruginosa. Continue IV Levaquin, which is susceptible to Pseudomonas based on sensitivity report. Discontinue broad-spectrum Zosyn. Rocephin and doxycycline were discontinued on 08/10 following sputum culture results. Preliminary blood cultures revealed NGTD. Await final cultures. Urine Legionella and pneumococcal antigens are pending Continue supportive care with Mucinex, cornet, Tylenol, and albuterol as needed Continue supplemental oxygen with goal O2 saturation 90% or above. Wean to goal (2) Grade II diastolic dysfunction: Code(s): I51.9 - Heart disease, unspecified Status: Acute Assessment and Plan: Evident on echo on 08/08 as well as mild LVH, no pulmonary hypertension. LVEF is >70%. She has gradually developed pedal edema over the past 3 weeks. BNP was elevated at 2660. There was no cardiomegaly noted on chest x-ray. Continue to monitor fluid balance in light of hyponatremia. IV Lasix has been held, but given evidence of increased pedal edema, needs to be resumed when appropriate. Urine sodium is pending. Continue heart healthy diet Continue metoprolol. Irbesartan is on hold due to hyponatremia (3) Hyponatremia: Code(s): E87.1 - Hypo-osmolality and hyponatremia Status: Acute Assessment and Plan: This seems to be a chronic and baseline appears to be 125. This may be due to SSRI use. Sodium was low in 119-121 range but does appear to be improving, now ranging between 122-126. Urine sodium is 15 and FENa is less than 1% Continue to monitor sodium every 6 hours She did show improvement with gentle IV fluids, however she is at risk for fluid overload given diastolic dysfunction and increased pedal edema. It is important to closely monitor her fluid balance. Recheck urine sodium. Will also recheck urine creatinine an determine FENa. May need to consider gentle IV fluids in conjunction with Lasix to achieve balance while still maintaining stable sodium levels, dependent on urine sodium levels. Will monitor closely Continue to hold irbesartan and sertraline. I believe that sertraline should be discontinued given her risk for symptomatic hyponatremia.. (4) Hypokalemia: Code(s): E87.6 - Hypokalemia Status: Acute Assessment and Plan: Potassium was stable at 3.4 this morning. Plan to administer low-dose potassium if Lasix is resumed. Continue to monitor potassium levels closely and replace as needed (5) Essential (primary) hypertension: Code(s): I10 - Essential (primary) hypertension Status: Acute Assessment and Plan: Blood pressures were reviewed and elevated initially but have since improved and are stable at this time. Blood pressure today iss 149/83. Continue metoprolol, hydralazine, and amlodipine Monitor blood pressures closely. Irbesartan has been held in light of hyponatremia. (6) Anxiety: Code(s): F41.9 - Anxiety disorder, unspecified Status: Acute Assessment and Plan: She reports she was very anxious yesterday, and believes that this contributed to her shortness of breath. Continue to hold Zoloft given hyponatremia Continue 0.5 mg Ativan as needed. (7) COPD with asthma: Code(s): J44.9 - Chronic obstructive pulmonary disease, unspecified Status: Acute Assessment and Plan: She was recently treated for COPD exacerbation approximately 1 month ago with steroids and antibiotics. COPD puts
[2019-08-12] MEDS: MAGNESIUM OXIDE 400 MG TABLET PO (10:19)
[2019-08-12 11:43] LABS: Sodium Urine Random 93 meq/L
[2019-08-12 11:59] LABS: Creatinine Urine 36.8 mg/dL
[2019-08-12 13:24] LABS: Sodium 123 mmol/L (137-145)
[2019-08-12] MEDS: ALBUTEROL SULFATE (*SP) AEROSOL 1 PUFF 2 PUFF INHALATION ×2 (13:50→18:51)
[2019-08-12] MEDS: POTASSIUM CHLORIDE 20 MEQ TABLET.ER PO (16:38)
[2019-08-12 20:21] LABS: Sodium 124 mmol/L (137-145)
[2019-08-12] MEDS: ACETAMINOPHEN 325 MG TABLET 650 MG PO (22:35)
[2019-08-13] VITALS (8 sets, daily range): BP systolic 140–162; BP diastolic 57–69; PULSE 75–93; RESP 18–20; TEMP 36.7–38.3; O2SAT 92–96
[2019-08-13 02:10] LABS: Hemoglobin 9.3 g/dL (12.0-15.0); Mean Corpuscular HGB Conc 33.2 g/dl (32-36); Mean Corpuscular Hemoglobin 28.1 pg (26-34); Mean Corpuscular Volume 84.6 fl (80-100); Mean Platelet Volume 9.4 fl (7.4-10.4); Platelet Count Result 433 k/mm3 (150-375); Red Blood Count 3.31 M/mm3 (4.2-5.4); Red Cell Distribution Width 13.8 % (11.5-14.5); White Blood Count 11.7 K/mm3 (4.5-10.0)
[2019-08-13] MEDS: LORAZEPAM 0.5 MG TABLET PO ×2 (02:18→18:36)
[2019-08-13 02:26] LABS: Blood Urea Nitrogen 6 mg/dL (7-17); Calcium 8.1 mg/dL (8.4-10.2); Carbon Dioxide 28 mmol/L (22-30); Chloride 93 mmol/L (98-107); Estimated CRCL calculation 69 ml/min; Estimated Glomerular Filt Rate > 60; Glucose 147 mg/dL (65-105); Magnesium 1.7 mg/dL (1.6-2.3); Potassium 3.3 mmol/L (3.4-5.0); Sodium 125 mmol/L (137-145)
[2019-08-13] MEDS: SODIUM CHLORIDE 1 GM TABLET PO ×2 (08:20→17:47)
[2019-08-13] MEDS: MONTELUKAST SODIUM 10 MG TABLET PO (08:21)
[2019-08-13] MEDS: AMLODIPINE BESYLATE 5 MG TABLET PO (08:21)
[2019-08-13] MEDS: POTASSIUM CHLORIDE 20 MEQ TABLET.ER PO ×2 (08:21→17:47)
[2019-08-13] MEDS: PIROXICAM 10 MG CAPSULE PO (08:21)
[2019-08-13] MEDS: CHOLECALCIFEROL 1,000 UNIT TABLET 1000 UNITS PO (08:21)
[2019-08-13] MEDS: hydrALAZINE HCL 50 MG TABLET BY MOUTH ×3 (08:21→17:47)
[2019-08-13] MEDS: LORATADINE 10 MG TABLET PO (08:21)
[2019-08-13] MEDS: METOPROLOL SUCCINATE EXT REL 50 MG TABCR BY MOUTH (08:22)
[2019-08-13] MEDS: MAGNESIUM OXIDE 400 MG TABLET PO (08:22)
[2019-08-13 10:15] LABS: Sodium 122 mmol/L (137-145)
[2019-08-13] MEDS: ALBUTEROL SULFATE (*SP) AEROSOL 1 PUFF 2 PUFF INHALATION ×3 (10:57→19:43)
--- NOTE | 2019-08-13 11:07 | P.PNIM_ITS ---
Progress Note: A&P Assessment and Plan (1) CAP (community acquired pneumonia): Code(s): J18.9 - Pneumonia, unspecified organism Status: Acute Assessment and Plan: She presented with cough, SOB, and fever with T-max 100.2?. Chest x-ray shows right mid to lower lung infiltrate. She has productive cough. Leukocytosis is improving and she remains afebrile. She has been weaned from oxygen and is stable on room air. * Sputum culture demonstrates Pseudomonas aeruginosa. * Continue IV Levaquin, which is susceptible to Pseudomonas based on sensitivity report. * Broad-spectrum Zosyn discontinued on 08/11 following sensitivities. Rocephin and doxycycline were discontinued on 08/10 following sputum culture results. * Preliminary blood cultures revealed NGTD. Await final cultures. * Urine Legionella and pneumococcal antigens are pending * Continue supportive care with Mucinex, cornet, Tylenol, and albuterol as needed * Supplemental oxygen as needed with goal O2 saturation 90% or above. Wean to goal (2) Grade II diastolic dysfunction: Code(s): I51.9 - Heart disease, unspecified Status: Acute Assessment and Plan: Evident on echo on 08/08 as well as mild LVH, no pulmonary hypertension. LVEF is >70%. She has gradually developed pedal edema over the past 3 weeks. BNP was elevated at 2660. There was no cardiomegaly noted on chest x-ray. * IV lasix has been resumed 20 mg BID. Closely monitor fluid balance * Continue heart healthy diet * Continue metoprolol. Irbesartan is on hold due to hyponatremia (3) Hyponatremia: Code(s): E87.1 - Hypo-osmolality and hyponatremia Status: Acute Assessment and Plan: This seems to be a chronic and baseline appears to be 125. This may be due to SSRI use. Sodium was low in 119-121 range but does appear to be improving, now ranging between 122-126. Initial urine sodium was 15, repeat urine sodium was 93 and FENa was 1% * Continue to monitor sodium every 6 hours. * IV lasix 20 mg BID has been resumed to reduce free water and increase serum sodium. It is important to closely monitor her fluid balance. * Trend sodium following diuresis. I believe she will need to be discharged with lasix as this is not a home med for her, but her sodium will need to be closely monitored. * Continue to hold irbesartan. Sertraline has been discontinued. (4) Hypokalemia: Code(s): E87.6 - Hypokalemia Status: Acute Assessment and Plan: Potassium was mildly low at 3.3 this morning. * Continue 20 mEq potassium bid with lasix. * Continue to monitor potassium levels closely and replace as needed (5) Essential (primary) hypertension: Code(s): I10 - Essential (primary) hypertension Status: Acute Assessment and Plan: Blood pressures were reviewed and elevated initially but have displayed improvement. BP was mildly elevated at 152/60 this morning. * Continue metoprolol, hydralazine, and amlodipine * Resume IV Lasix. Suspect improvement with diuresis * Monitor blood pressures closely. * Irbesartan has been held in light of hyponatremia. (6) Anxiety: Code(s): F41.9 - Anxiety disorder, unspecified Status: Acute Assessment and Plan: She is generally very anxious but has increased with hospitalization. She feels less anxious today and is more relaxed. * Continue 0.5 mg Ativan as needed. * Zoloft has been discontinued given hyponatremia (7) COPD with asthma: Code(s): J44.9 - Chronic obstructive pulmonary disease, uns
--- NOTE | 2019-08-13 11:07 | PM.IMPN ---
Progress Note: A&P Assessment and Plan (1) CAP (community acquired pneumonia): Code(s): J18.9 - Pneumonia, unspecified organism Status: Acute Assessment and Plan: She presented with cough, SOB, and fever with T-max 100.2?. Chest x-ray shows right mid to lower lung infiltrate. She has productive cough. Leukocytosis is improving and she remains afebrile. She has been weaned from oxygen and is stable on room air. Sputum culture demonstrates Pseudomonas aeruginosa. Continue IV Levaquin, which is susceptible to Pseudomonas based on sensitivity report. Broad-spectrum Zosyn discontinued on 08/11 following sensitivities. Rocephin and doxycycline were discontinued on 08/10 following sputum culture results. Preliminary blood cultures revealed NGTD. Await final cultures. Urine Legionella and pneumococcal antigens are pending Continue supportive care with Mucinex, cornet, Tylenol, and albuterol as needed Supplemental oxygen as needed with goal O2 saturation 90% or above. Wean to goal (2) Grade II diastolic dysfunction: Code(s): I51.9 - Heart disease, unspecified Status: Acute Assessment and Plan: Evident on echo on 08/08 as well as mild LVH, no pulmonary hypertension. LVEF is >70%. She has gradually developed pedal edema over the past 3 weeks. BNP was elevated at 2660. There was no cardiomegaly noted on chest x-ray. IV lasix has been resumed 20 mg BID. Closely monitor fluid balance Continue heart healthy diet Continue metoprolol. Irbesartan is on hold due to hyponatremia (3) Hyponatremia: Code(s): E87.1 - Hypo-osmolality and hyponatremia Status: Acute Assessment and Plan: This seems to be a chronic and baseline appears to be 125. This may be due to SSRI use. Sodium was low in 119-121 range but does appear to be improving, now ranging between 122-126. Initial urine sodium was 15, repeat urine sodium was 93 and FENa was 1% Continue to monitor sodium every 6 hours. IV lasix 20 mg BID has been resumed to reduce free water and increase serum sodium. It is important to closely monitor her fluid balance. Trend sodium following diuresis. I believe she will need to be discharged with lasix as this is not a home med for her, but her sodium will need to be closely monitored. Continue to hold irbesartan. Sertraline has been discontinued. (4) Hypokalemia: Code(s): E87.6 - Hypokalemia Status: Acute Assessment and Plan: Potassium was mildly low at 3.3 this morning. Continue 20 mEq potassium bid with lasix. Continue to monitor potassium levels closely and replace as needed (5) Essential (primary) hypertension: Code(s): I10 - Essential (primary) hypertension Status: Acute Assessment and Plan: Blood pressures were reviewed and elevated initially but have displayed improvement. BP was mildly elevated at 152/60 this morning. Continue metoprolol, hydralazine, and amlodipine Resume IV Lasix. Suspect improvement with diuresis Monitor blood pressures closely. Irbesartan has been held in light of hyponatremia. (6) Anxiety: Code(s): F41.9 - Anxiety disorder, unspecified Status: Acute Assessment and Plan: She is generally very anxious but has increased with hospitalization. She feels less anxious today and is more relaxed. Continue 0.5 mg Ativan as needed. Zoloft has been discontinued given hyponatremia (7) COPD with asthma: Code(s): J44.9 - Chronic obstructive pulmonary disease, unspecified Status: Acute Assessment and Plan: She was recently treated for COPD exacerbation approximately 1 month ago with steroids and antibiotics. Her underlying lung disease is most likely the cause of her Pseudomonas infection. Continue with albuterol and budesonide. Continue to monitor (8) COVID-19 ruled out: Code(s): Z03.818 - Encounter for observation for suspected exposure to
[2019-08-13] MEDS: FUROSEMIDE INJ 40 MG/4 ML VIAL 20 MG IV PUSH ×2 (11:15→17:48)
[2019-08-13] MEDS: ACETAMINOPHEN 325 MG TABLET 650 MG PO (12:13)
[2019-08-13 13:06] LABS: Pneumococcal Antigen Urine Not Detected (Not Detected)
[2019-08-13 16:22] LABS: Sodium 126 mmol/L (137-145)
[2019-08-13 22:54] LABS: Sodium 124 mmol/L (137-145)
[2019-08-14] VITALS (8 sets, daily range): BP systolic 131–154; BP diastolic 48–68; PULSE 82–92; RESP 16–20; TEMP 36.3–38.3; O2SAT 93–95
[2019-08-14 06:10] LABS: Hematocrit 31.6 % (37.0-47.0); Hemoglobin 10.5 g/dL (12.0-15.0); Mean Corpuscular HGB Conc 33.2 g/dl (32-36); Mean Corpuscular Hemoglobin 28.2 pg (26-34); Mean Corpuscular Volume 84.9 fl (80-100); Mean Platelet Volume 9.8 fl (7.4-10.4); Platelet Count Result 492 k/mm3 (150-375); Red Blood Count 3.72 M/mm3 (4.2-5.4); Red Cell Distribution Width 13.9 % (11.5-14.5); White Blood Count 14.5 K/mm3 (4.5-10.0)
[2019-08-14 06:28] LABS: Blood Urea Nitrogen 9 mg/dL (7-17); Calcium 8.3 mg/dL (8.4-10.2); Carbon Dioxide 28 mmol/L (22-30); Chloride 88 mmol/L (98-107); Estimated CRCL calculation 69 ml/min; Estimated Glomerular Filt Rate > 60; Glucose 126 mg/dL (65-105); Magnesium 1.7 mg/dL (1.6-2.3); Potassium 3.6 mmol/L (3.4-5.0); Sodium 124 mmol/L (137-145)
[2019-08-14] MEDS: FUROSEMIDE INJ 40 MG/4 ML VIAL 20 MG IV PUSH (08:55)
[2019-08-14] MEDS: PIROXICAM 10 MG CAPSULE PO (08:55)
[2019-08-14] MEDS: POTASSIUM CHLORIDE 20 MEQ TABLET.ER PO ×2 (08:56→16:56)
[2019-08-14] MEDS: LORATADINE 10 MG TABLET PO (08:56)
[2019-08-14] MEDS: METOPROLOL SUCCINATE EXT REL 50 MG TABCR BY MOUTH (08:56)
[2019-08-14] MEDS: AMLODIPINE BESYLATE 5 MG TABLET PO (08:57)
[2019-08-14] MEDS: CHOLECALCIFEROL 1,000 UNIT TABLET 1000 UNITS PO (08:57)
[2019-08-14] MEDS: MONTELUKAST SODIUM 10 MG TABLET PO (08:57)
[2019-08-14] MEDS: MAGNESIUM OXIDE 400 MG TABLET PO (08:57)
[2019-08-14] MEDS: hydrALAZINE HCL 50 MG TABLET BY MOUTH ×3 (08:57→16:56)
[2019-08-14] MEDS: SODIUM CHLORIDE 1 GM TABLET PO ×2 (08:57→16:56)
[2019-08-14 09:50] LABS: Add Urine Microscopic? YES; Appearance Urine Clear (Clear); Bilirubin Urine Negative (Negative); Blood Urine Negative (Negative); Color Urine Yellow (Yellow); Glucose Urine UA Negative (Negative); Ketones Urine Trace mg/dL (Negative); Leukocyte Esterase Ur Negative LEU/UL (Negative); Mucus Urine Rare /lpf; Nitrate Urine Negative (Negative); Protein Urine 1+ mg/dL (Negative); RBC Urine 0-2 /hpf (0-2); Specific Grav Ur 1.014 (1.001-1.035); Squamous Epithelial Cell Urine Occasional /hpf (Few); Urobilinogen Urine Negative mg/dL (<2.0); WBC Urine 0-3 /hpf
--- NOTE | 2019-08-14 11:00 | P.PNIM_ITS ---
Progress Note: A&P Assessment and Plan (1) CAP (community acquired pneumonia): Code(s): J18.9 - Pneumonia, unspecified organism Status: Acute Assessment and Plan: She presented with cough, SOB, and fever with T-max 100.2?. Chest x-ray shows right mid to lower lung infiltrate. She complains of productive cough. She developed a fever at 100.9 overnight and this morning after previously being afebrile. Mild increase in leukocytosis. She has been weaned from oxygen and is stable on room air. * Sputum culture demonstrates Pseudomonas aeruginosa. Continue IV Levaquin started on 08/10, which is susceptible based on sensitivity report. * Broad-spectrum Zosyn discontinued on 08/11 following sensitivities. Rocephin and doxycycline were discontinued on 08/10 following sputum culture results. * Preliminary blood cultures revealed NGTD. Await final cultures. * Urine pneumococcal antigen is negative. Urinary legionella antigen is pending. * Continue supportive care with Mucinex, cornet, Tylenol, and albuterol as needed * Supplemental oxygen as needed with goal O2 saturation 90% or above. Wean to goal * Repeat blood cultures given new onset fever * Perform bedside swallow eval to assess for risk of aspiration putting her at risk for aspiration pneumonia (2) Grade II diastolic dysfunction: Code(s): I51.9 - Heart disease, unspecified Status: Acute Assessment and Plan: Evident on echo on 08/08 as well as mild LVH, no pulmonary hypertension. LVEF is >70%. She has gradually developed pedal edema over the past 3 weeks. BNP was elevated at 2660. There was no cardiomegaly noted on chest x-ray. * Continue IV Lasix 20 mg daily. Closely monitor fluid balance * Continue heart healthy diet * Continue metoprolol. Resume irbesartan (3) Hyponatremia: Code(s): E87.1 - Hypo-osmolality and hyponatremia Status: Acute Assessment and Plan: This seems to be a chronic and baseline appears to be 125. This may be due to SSRI use. Sodium was low in 119-121 range but has improved, now ranging between 122-126. Initial urine sodium was 15, repeat urine sodium was 93 and FENa was 1% * Continue to closely monitor sodium * Continue IV lasix 20 mg while closely monitoring her fluid balance. * Sertraline has been discontinued. * Resume irbesartan (4) Hypokalemia: Code(s): E87.6 - Hypokalemia Status: Acute Assessment and Plan: Potassium has been low and has been replaced. Stable this morning at 3.6. * Continue 20 mEq potassium bid with lasix. * Continue to monitor potassium levels closely and replace as needed (5) Essential (primary) hypertension: Code(s): I10 - Essential (primary) hypertension Status: Acute Assessment and Plan: Blood pressures were reviewed and elevated initially but have displayed improvement. BP was mildly elevated at 154/68 this morning. * Continue metoprolol, hydralazine, and amlodipine * Continue IV Lasix. Suspect improvement with diuresis * Resume irbesartan. * Monitor blood pressures closely. (6) Anxiety: Code(s): F41.9 - Anxiety disorder, unspecified Status: Acute Assessment and Plan: She is generally very anxious but has increased with hospitalization. * Continue 0.5 mg Ativan as needed. * Zoloft has been discontinued given hyponatremia (7) COPD with asthma: Code(s): J44.9 - Chronic obstructive pulmonary disease, unspecified Status: Acute Assessment and Plan: She was recently treated for
--- NOTE | 2019-08-14 11:00 | PM.IMPN ---
Progress Note: A&P Assessment and Plan (1) CAP (community acquired pneumonia): Code(s): J18.9 - Pneumonia, unspecified organism Status: Acute Assessment and Plan: She presented with cough, SOB, and fever with T-max 100.2?. Chest x-ray shows right mid to lower lung infiltrate. She complains of productive cough. She developed a fever at 100.9 overnight and this morning after previously being afebrile. Mild increase in leukocytosis. She has been weaned from oxygen and is stable on room air. Sputum culture demonstrates Pseudomonas aeruginosa. Continue IV Levaquin started on 08/10, which is susceptible based on sensitivity report. Broad-spectrum Zosyn discontinued on 08/11 following sensitivities. Rocephin and doxycycline were discontinued on 08/10 following sputum culture results. Preliminary blood cultures revealed NGTD. Await final cultures. Urine pneumococcal antigen is negative. Urinary legionella antigen is pending. Continue supportive care with Mucinex, cornet, Tylenol, and albuterol as needed Supplemental oxygen as needed with goal O2 saturation 90% or above. Wean to goal Repeat blood cultures given new onset fever Perform bedside swallow eval to assess for risk of aspiration putting her at risk for aspiration pneumonia (2) Grade II diastolic dysfunction: Code(s): I51.9 - Heart disease, unspecified Status: Acute Assessment and Plan: Evident on echo on 08/08 as well as mild LVH, no pulmonary hypertension. LVEF is >70%. She has gradually developed pedal edema over the past 3 weeks. BNP was elevated at 2660. There was no cardiomegaly noted on chest x-ray. Continue IV Lasix 20 mg daily. Closely monitor fluid balance Continue heart healthy diet Continue metoprolol. Resume irbesartan (3) Hyponatremia: Code(s): E87.1 - Hypo-osmolality and hyponatremia Status: Acute Assessment and Plan: This seems to be a chronic and baseline appears to be 125. This may be due to SSRI use. Sodium was low in 119-121 range but has improved, now ranging between 122-126. Initial urine sodium was 15, repeat urine sodium was 93 and FENa was 1% Continue to closely monitor sodium Continue IV lasix 20 mg while closely monitoring her fluid balance. Sertraline has been discontinued. Resume irbesartan (4) Hypokalemia: Code(s): E87.6 - Hypokalemia Status: Acute Assessment and Plan: Potassium has been low and has been replaced. Stable this morning at 3.6. Continue 20 mEq potassium bid with lasix. Continue to monitor potassium levels closely and replace as needed (5) Essential (primary) hypertension: Code(s): I10 - Essential (primary) hypertension Status: Acute Assessment and Plan: Blood pressures were reviewed and elevated initially but have displayed improvement. BP was mildly elevated at 154/68 this morning. Continue metoprolol, hydralazine, and amlodipine Continue IV Lasix. Suspect improvement with diuresis Resume irbesartan. Monitor blood pressures closely. (6) Anxiety: Code(s): F41.9 - Anxiety disorder, unspecified Status: Acute Assessment and Plan: She is generally very anxious but has increased with hospitalization. Continue 0.5 mg Ativan as needed. Zoloft has been discontinued given hyponatremia (7) COPD with asthma: Code(s): J44.9 - Chronic obstructive pulmonary disease, unspecified Status: Acute Assessment and Plan: She was recently treated for COPD exacerbation approximately 1 month ago with steroids and antibiotics. Her underlying lung disease is most likely the cause of her Pseudomonas infection. Continue with albuterol and budesonide. Continue to monitor (8) Elevated fasting glucose: Code(s): R73.01 - Impaired fasting glucose Status: Acute Assessment and Plan: Fasting glucose was elevated at 147 yesterday. Will check A1c wi
[2019-08-14 12:55] LABS: Sodium 124 mmol/L (137-145)
[2019-08-14] MEDS: LORAZEPAM 0.5 MG TABLET PO ×2 (15:06→21:49)
[2019-08-14] MEDS: ALBUTEROL SULFATE (*SP) AEROSOL 1 PUFF 2 PUFF INHALATION (17:01)
[2019-08-14] MEDS: ACETAMINOPHEN 325 MG TABLET 650 MG PO (20:07)
[2019-08-15] VITALS (7 sets, daily range): BP systolic 133–145; BP diastolic 56–71; PULSE 69–92; RESP 18–20; TEMP 36.2–37.7; O2SAT 93–96
[2019-08-15] MEDS: ALBUTEROL SULFATE (*SP) AEROSOL 1 PUFF 2 PUFF INHALATION (02:47)
[2019-08-15] MEDS: LORAZEPAM 0.5 MG TABLET PO ×2 (04:16→13:43)
[2019-08-15 06:15] LABS: Hematocrit 30.2 % (37.0-47.0); Mean Corpuscular HGB Conc 33.1 g/dl (32-36); Mean Corpuscular Volume 84.6 fl (80-100); Mean Platelet Volume 9.9 fl (7.4-10.4); Platelet Count Result 445 k/mm3 (150-375); Red Blood Count 3.57 M/mm3 (4.2-5.4); Red Cell Distribution Width 13.9 % (11.5-14.5); White Blood Count 14.7 K/mm3 (4.5-10.0)
[2019-08-15 06:24] LABS: Blood Urea Nitrogen 9 mg/dL (7-17); Calcium 8.2 mg/dL (8.4-10.2); Carbon Dioxide 30 mmol/L (22-30); Chloride 88 mmol/L (98-107); Estimated CRCL calculation 59 ml/min; Estimated Glomerular Filt Rate > 60; Glucose 124 mg/dL (65-105); Potassium 3.8 mmol/L (3.4-5.0); Sodium 127 mmol/L (137-145)
[2019-08-15 06:26] LABS: Hemoglobin A1C 7.7 % (<5.7)
[2019-08-15] MEDS: ACETAMINOPHEN 325 MG TABLET 650 MG PO (06:56)
[2019-08-15] MEDS: SODIUM CHLORIDE 1 GM TABLET PO (08:29)
[2019-08-15] MEDS: CHOLECALCIFEROL 1,000 UNIT TABLET 1000 UNITS PO (08:29)
[2019-08-15] MEDS: AMLODIPINE BESYLATE 5 MG TABLET PO (08:29)
[2019-08-15] MEDS: MONTELUKAST SODIUM 10 MG TABLET PO (08:30)
[2019-08-15] MEDS: MAGNESIUM OXIDE 400 MG TABLET PO (08:30)
[2019-08-15] MEDS: hydrALAZINE HCL 50 MG TABLET BY MOUTH ×2 (08:30→11:46)
[2019-08-15] MEDS: PIROXICAM 10 MG CAPSULE PO (08:30)
[2019-08-15] MEDS: POTASSIUM CHLORIDE 20 MEQ TABLET.ER PO (08:30)
[2019-08-15] MEDS: METOPROLOL SUCCINATE EXT REL 50 MG TABCR BY MOUTH (08:31)
[2019-08-15] MEDS: LORATADINE 10 MG TABLET PO (08:31)
[2019-08-15] MEDS: FUROSEMIDE INJ 40 MG/4 ML VIAL 20 MG IV PUSH (08:31)
[2019-08-15] MEDS: IRBESARTAN 150 MG TABLET BY MOUTH (11:45)
--- NOTE | 2019-08-15 11:57 | P.DS_ITS ---
DS: Admitting Diagnosis Admitting Diagnosis Admitting Diagnosis: Pneumonia, unspecified organism DS: Discharge Diagnosis Discharge Diagnosis (1) CAP (community acquired pneumonia): Code(s): J18.9 - Pneumonia, unspecified organism Status: Acute Assessment and Plan: She presented with cough, SOB, and fever with T-max 100.2?. Chest x-ray shows right mid to lower lung infiltrate. She complains of productive cough. She developed a fever this morning of 99.9 but has been since been afebrile (resolved with Tylenol). Leukocytosis is still present with slight elevate but relatively stable. She has been weaned from oxygen and is stable on room air. She symptomatically feels much better * Sputum culture demonstrates Pseudomonas aeruginosa. Continue IV Levaquin started on 08/10, which is susceptible based on sensitivity report. * Broad-spectrum Zosyn discontinued on 08/11 following sensitivities. Rocephin and doxycycline were discontinued on 08/10 following sputum culture results. * Initial blood cultures negative x 2 after 5 days. secondary Bcx are pending. Await final cultures. * Urine pneumococcal antigen is negative. Urinary legionella antigen is pending. * Continue supportive care with Mucinex, cornet, Tylenol at home * Continue Levaquin to complete a 10 day course of levaquin (through 08/19) * F/u with PCP in 1-2 weeks * F/u CBC on 08/17 or next week pending the holiday weekend * F/u CXR in 4-6 weeks recommended (2) Grade II diastolic dysfunction: Code(s): I51.9 - Heart disease, unspecified Status: Acute Assessment and Plan: Evident on echo on 08/08 as well as mild LVH, no pulmonary hypertension. LVEF is >70%. She has gradually developed pedal edema over the past 3 weeks. BNP was elevated at 2660. There was no cardiomegaly noted on chest x-ray. * IV Lasix 20 mg daily during stay. Will send home with daily Lasix 20 mg and potassium supplementation * F/u with PCP * Continue heart healthy diet * Continue metoprolol and irbesartan (3) Hyponatremia: Code(s): E87.1 - Hypo-osmolality and hyponatremia Status: Acute Assessment and Plan: This seems to be a chronic and baseline appears to be 125. This may be due to SSRI use. Sodium was low in 119-121 range but has improved, now ranging between 122-127 with it being 127 today. Initial urine sodium was 15, repeat urine sodium was 93 and FENa was 1% * F/u BMP on 08/17 or next week given holiday * Continue PO lasix 20 mg at discharge with potassium supplementation * Sertraline has been discontinued. * Continue irbesartan (4) Hypokalemia: Code(s): E87.6 - Hypokalemia Status: Acute Assessment and Plan: Potassium has been low and has been replaced. Stable this morning at 3.8 * Continue with 20 mEq potassium daily with lasix. Anticipate improved K levels with improved appetite * BMP on 08/17 or next week as above (5) Essential (primary) hypertension: Code(s): I10 - Essential (primary) hypertension Status: Acute Assessment and Plan: Blood pressures were reviewed and elevated initially but have displayed improvement. BP 133/56 this morning * Continue metoprolol, hydralazine, amlodipine and irbesartan * Continue PO Lasix. Suspect improvement with diuresis * Recommended monitor blood pressures daily and follow up with PCP (6) Anxiety:
--- NOTE | 2019-08-15 11:57 | PM.DS ---
DS: Admitting Diagnosis Admitting Diagnosis Admitting Diagnosis: Pneumonia, unspecified organism DS: Discharge Diagnosis Discharge Diagnosis (1) CAP (community acquired pneumonia): Code(s): J18.9 - Pneumonia, unspecified organism Status: Acute Assessment and Plan: She presented with cough, SOB, and fever with T-max 100.2?. Chest x-ray shows right mid to lower lung infiltrate. She complains of productive cough. She developed a fever this morning of 99.9 but has been since been afebrile (resolved with Tylenol). Leukocytosis is still present with slight elevate but relatively stable. She has been weaned from oxygen and is stable on room air. She symptomatically feels much better Sputum culture demonstrates Pseudomonas aeruginosa. Continue IV Levaquin started on 08/10, which is susceptible based on sensitivity report. Broad-spectrum Zosyn discontinued on 08/11 following sensitivities. Rocephin and doxycycline were discontinued on 08/10 following sputum culture results. Initial blood cultures negative x 2 after 5 days. secondary Bcx are pending. Await final cultures. Urine pneumococcal antigen is negative. Urinary legionella antigen is pending. Continue supportive care with Mucinex, cornet, Tylenol at home Continue Levaquin to complete a 10 day course of levaquin (through 08/19) F/u with PCP in 1-2 weeks F/u CBC on 08/17 or next week pending the holiday weekend F/u CXR in 4-6 weeks recommended (2) Grade II diastolic dysfunction: Code(s): I51.9 - Heart disease, unspecified Status: Acute Assessment and Plan: Evident on echo on 08/08 as well as mild LVH, no pulmonary hypertension. LVEF is >70%. She has gradually developed pedal edema over the past 3 weeks. BNP was elevated at 2660. There was no cardiomegaly noted on chest x-ray. IV Lasix 20 mg daily during stay. Will send home with daily Lasix 20 mg and potassium supplementation F/u with PCP Continue heart healthy diet Continue metoprolol and irbesartan (3) Hyponatremia: Code(s): E87.1 - Hypo-osmolality and hyponatremia Status: Acute Assessment and Plan: This seems to be a chronic and baseline appears to be 125. This may be due to SSRI use. Sodium was low in 119-121 range but has improved, now ranging between 122-127 with it being 127 today. Initial urine sodium was 15, repeat urine sodium was 93 and FENa was 1% F/u BMP on 08/17 or next week given holiday Continue PO lasix 20 mg at discharge with potassium supplementation Sertraline has been discontinued. Continue irbesartan (4) Hypokalemia: Code(s): E87.6 - Hypokalemia Status: Acute Assessment and Plan: Potassium has been low and has been replaced. Stable this morning at 3.8 Continue with 20 mEq potassium daily with lasix. Anticipate improved K levels with improved appetite BMP on 08/17 or next week as above (5) Essential (primary) hypertension: Code(s): I10 - Essential (primary) hypertension Status: Acute Assessment and Plan: Blood pressures were reviewed and elevated initially but have displayed improvement. BP 133/56 this morning Continue metoprolol, hydralazine, amlodipine and irbesartan Continue PO Lasix. Suspect improvement with diuresis Recommended monitor blood pressures daily and follow up with PCP (6) Anxiety: Code(s): F41.9 - Anxiety disorder, unspecified Status: Acute Assessment and Plan: She is generally very anxious but has increased with hospitalization. Continue 0.5 mg Ativan as needed during stay Zoloft has been discontinued given hyponatremia F/u with PCP (7) COPD with asthma: Code(s): J44.9 - Chronic obstructive pulmonary disease,
--- NOTE | 2019-08-15 13:16 | P.CDI_ITS ---
CDI Query Clarification Request - Pneumonia has been documented - Sputum culture demonstrates pseudomonas aeruginosa documented Please clarify if there is any correlation between the sputum culture results and the pneumonia. * Pseudomonas pneumonia * Pseudomonas colonization * Other * Unable to determine
--- NOTE | 2019-08-15 13:31 | P.CDI_ITS ---
CDI Query Clarification Request -Pneumonia has been documented - sputum culture demonstrates pseudomonas aeruginosa Please clarify if there is any clinical significance to the sputum culture: * Pseudomonas pneumonia * Pseudomonas colonization * Other * Unable to determine
--- NOTE | 2019-08-15 13:31 | WPDCDIQUERY2 ---
CDI Query Clarification Request -Pneumonia has been documented - sputum culture demonstrates pseudomonas aeruginosa Please clarify if there is any clinical significance to the sputum culture: Pseudomonas pneumonia Pseudomonas colonization Other Unable to determine
--- NOTE | 2019-08-15 13:39 | P.CDI_ITS ---
CDI Query Clarification Request -Pneumonia has been documented - sputum culture demonstrates pseudomonas aeruginosa Please clarify if there is any clinical significance to the sputum culture growing pseudomonas aeruginosa. * Pseudomonas pneumonia * pseudomonas colonization * Other * Unable to determine
--- NOTE | 2019-08-15 13:52 | PCDIET ---
Weekly nutritional screen. Patient is tolerating current diet with adequate intake. No weight loss reported. No nutritional needs at this time.
[2019-08-15 18:01] LABS: Legionella pneumophila Ag Ur Not Detected (Not Detected)
== END 2019-08-15 15:05 | disposition home or self-care (01) | DRG 178 ==
LOC: ANHED 16:42 → ANH3MEDSUR 19:06
PROVIDERS: Internal Medicine; Nurse Practitioner; Physician Assistant; Admitting Provider Family Medicine; Emergency Provider Emergency Medicine; PCP Family Medicine; Visit Provider Physician Assistant
DX: J15.1 Pneumonia due to Pseudomonas (principal); E87.1 Hypo-osmolality and hyponatremia; J44.0 Chronic obstructive pulmonary disease with (acute) lower respiratory infection; Z20.828 Contact with and (suspected) exposure to other viral communicable diseases; I11.0 Hypertensive heart disease with heart failure; I50.9 Heart failure, unspecified; E87.6 Hypokalemia; R73.9 Hyperglycemia, unspecified; F41.9 Anxiety disorder, unspecified; R06.4 Hyperventilation; E04.2 Nontoxic multinodular goiter; F17.210 Nicotine dependence, cigarettes, uncomplicated; E55.9 Vitamin D deficiency, unspecified; D47.3 Essential (hemorrhagic) thrombocythemia; R79.82 Elevated C-reactive protein (CRP); Z79.899 Other long term (current) drug therapy; Z85.828 Personal history of other malignant neoplasm of skin
CPT/HCPCS: 36415; 36600; 71045; 80048; 80053; 80202; 81001; 82533; 82570; 82805; 83036; 83605; 83735; 83880; 84132; 84295; 84300; 84443; 84484; 85025; 85027; 85380; 85610; 85730; 86140; 87040; 87070; 87077; 87086; 87088; 87186; 87205; 87449; 87635; 87899; 92610; 93005; 93306; 93970; 94640; 94667; 94668; 96365; 96375; 99285; A9270; C9803; J0696; J1940; J1956; J2543; J3370; J7030; U0003

== ENCOUNTER 2019-09-20 14:13 | Outpatient (CLI) | payer MEDICARE, SELFPAY ==
--- NOTE | ~2019-09-20 | XR_ITS ---
XR chest 2V DATE: 09/20/2019 14:33 INDICATION: Cough. History of pneumonia. TECHNIQUE: PA and lateral views COMPARISON: 08/08/2019 portable AP chest FINDINGS: Again noted is elevated diaphragm and/or right subpulmonic pleural fluid. There is patchy infiltrate or atelectasis in the right lower lung, mildly improved since 08/08/2019. The left lung is hyperinflated but clear of infiltrate or consolidation. Normal heart size. Aortic arch calcification. No hilar or mediastinal enlargement is evident. IMPRESSION: Elevated diaphragm versus subpulmonic pleural fluid Right lower lung infiltrate and/atelectasis, mildly improved since 08/08/2019 Reviewed, dictated and finalized at location B.
== END 2019-09-20 14:14 | disposition home or self-care (01) ==
LOC: ANHIMG 14:22
PROVIDERS: PCP Family Medicine; Visit Provider Family Medicine
DX: J44.9 Chronic obstructive pulmonary disease, unspecified (principal); R05 Cough
CPT/HCPCS: 71046

== ENCOUNTER 2019-11-06 14:42 | Inpatient (IN) | payer MEDICARE, SELFPAY ==
[2019-11-06] VITALS (13 sets, daily range): BP systolic 82–134; BP diastolic 42–62; PULSE 55–123; RESP 20–32; TEMP 36.6; O2SAT 92–98
--- NOTE | ~2019-11-06 | CT_ITS ---
EXAMINATION: CT brain wo con INDICATION: Headache COMPARISON: None TECHNIQUE: Standard unenhanced head CT. The dose-length product (DLP) was 605.33 mGy-cm. The mA was a djusted according to patient size. Iterative reconstruction technique was employed. FINDINGS: There is no acute intraparenchymal hemorrhage. No evidence of mass lesion. No evidence of a cute infarction. There is mild periventricular and subcortical hypodensity probably related to small vessel ischemic disease. There is mild prominence of the sulci and ventricles related to cerebral atr ophy. Intracranial calcified cerebral atherosclerosis is noted. There are no extra-axial collections. There is no mass effect or midline shift. The orbits and soft tissues are unremarkable. There is mi ld mucosal thickening of the paranasal sinuses. IMPRESSION: 1. No acute intracranial abnormality. 2. Age related findings. Reviewed, dictated and finalized at location A.
--- NOTE | ~2019-11-06 | CT_ITS ---
EXAMINATION: CTA chest PE protocol DATE: 11/06/2019 17:23 INDICATION: Shortness of breath TECHNIQUE: Computed tomography angiography (CTA) of the chest was performed with 100 mL Omnipaque-350 intravenous contrast timed to evaluate the pulmonary arteries. Coronal maximum intensity projection 3D-reconstructions were created by the technologist. The dose-length product (DLP) was 410.15 mGy-cm. Automated exposure control and iterative reconstruction technique were employed. COMPARISON: 04/09/2018 FINDINGS: Respiratory motion slightly limits the examination. The pulmonary arteries are well-opacifi ed. No pulmonary embolism is identified. The right lower lobe is collapsed. There are patchy groundgl ass airspace opacities in the upper lobes, right middle lobe, and left lower lobe. There is a moderat e to large right hydropneumothorax with left fluid component much greater than the gas component. Car diomegaly is noted. There are enlarged mediastinal lymph nodes, the largest of which is a 1.4 cm prec arinal lymph node. There are bilateral thyroid nodules, measuring up to 2.8 cm on the right, which li ve been previously biopsied. There is ascites and free intraperitoneal gas in the visualized upper ab domen. The nasogastric tube is followed as far as the stomach. Stable bilateral adrenal masses are pr esent, most likely adenomas. IMPRESSION: 1. No pulmonary embolism identified, sensitivity slightly limited by respiratory motion artifact. 2. Moderate to large sized right hydropneumothorax with fluid component much greater than the gas com ponent. 3. Diffuse groundglass airspace opacities, consistent with pulmonary edema and/or pneumonia. 4. Ascites and free intraperitoneal gas in the visualized upper abdomen, consistent with bowel perfor ation. Recommend surgical evaluation if appropriate. These findings were discussed with Dr. Carmenza Patiño MD in the Emergency Department at 1751 hours on 11/06/2019. Reviewed, dictated and finalized at location A. IMPRESSION: 1. No pulmonary embolism identified, sensitivity slightly limited by respirator y motion artifact. 2. Moderate to large sized right hydropneumothorax with fluid component much gr eater than the gas component. 3. Diffuse groundglass airspace opacities, consistent with pulmonary edema and/ or pneumonia. 4. Ascites and free intraperitoneal gas in the visualized upper abdomen, consis tent with bowel perforation. Recommend surgical evaluation if appropriate. These findings were discussed with Dr. Carmenza Patiño MD in the Emergency Depar tment at 1751 hours on 11/06/2019.
--- NOTE | ~2019-11-06 | XR_ITS ---
XR abdomen NG/feed tube insert INDICATION: Evaluate NG tube position. TECHNIQUE: Limited KUB perform for evaluating NG tube . COMPARISON: No prior studies for comparison. FINDINGS: NG tube tip in the stomach. Visualized bowel gas pattern is nonspecific.Moderate gastric d istention. IMPRESSION: 1: NG tube tip in the stomach. Reviewed, dictated and finalized at location A.
--- NOTE | ~2019-11-06 | XR_ITS ---
EXAMINATION: XR chest-chest tube insert/pos DATE: 11/07/2019 01:14 INDICATION: Right-sided chest tube placement. TECHNIQUE: A single frontal view of the chest was obtained. COMPARISON: Chest single view 11/06/2019, chest CT 11/06/2019 FINDINGS: There are airspace and interstitial opacities in all lung zones bilaterally, right worse th an left. There is a small right pleural effusion. No pneumothorax. The heart size is normal. The endo tracheal tube tip is 3.6 cm above the jono. The nasogastric tube tip is beyond the inferior margin of the radiograph, but at least to the stomach. Surgical drains overlie the abdomen. There is a right -sided chest tube with proximal side port in the chest wall. There is soft tissue gas in right chest wall and right neck. A right subclavian central venous catheter is seen with tip in the superior vena cava. IMPRESSION: 1. Worsened diffuse lung disease, likely a combination of pneumonia and pulmonary edema. 2. Small right pleural effusion. 3. Right-sided chest tube with proximal side port in the chest wall. Extensive soft tissue gas in rig ht chest wall and right neck. Reviewed, dictated and finalized at location A. IMPRESSION: 1. Worsened diffuse lung disease, likely a combination of pneumonia and pulmona ry edema. 2. Small right pleural effusion. 3. Right-sided chest tube with proximal side port in the chest wall. Extensive soft tissue gas in right chest wall and right neck.
--- NOTE | ~2019-11-06 | XR_ITS ---
XR chest port-a-cath/central 11/06/2019 15:54 Indication: Central line placement Procedure: AP portable chest Comparison: Comparison to multiple prior studies sequentially, with oldest reviewed study dated 08/07. Findings: Endotracheal tube tip 2.3 cm above the jono. Right subclavian central venous catheter tip in the SVC. Persistent extensive right-sided airspace disease with elevated right diaphragm. Gas is noted beneath the right diaphragm with suggestion of haustral markings, likely colonic gas. Impression: 1: Central line tip in the SVC. Otherwise, no significant change. Reviewed, dictated and finalized at location A. Impression: 1: Central line tip in the SVC. Otherwise, no significant change.
--- NOTE | ~2019-11-06 | CT_ITS ---
EXAMINATION: CT abdomen pelvis wo con DATE: 11/06/2019 19:55 INDICATION: Pneumoperitoneum on pulmonary embolism protocol CT of the chest TECHNIQUE: Computed tomography (CT) of the abdomen and pelvis was performed without intravenous contr ast. The dose-length product (DLP) was 722.79 mGy-cm. Automated exposure control and iterative recons truction technique were employed. COMPARISON: CTs from today and 04/09/2018 FINDINGS: Right-sided hydropneumothorax is again noted. There right lower lobe collapse. Patchy airsp jose opacities are seen in the visualized lung bases. The heart size is normal. The nasogastric tube i s in the stomach. There is a large volume of free intraperitoneal gas in the upper abdomen. Upper abd ominal ascites is also seen which tracks into the pelvis. The liver, spleen, and pancreas are normal. Chronic bilateral adrenal masses are present, consistent with adenomas. The gallbladder is thick wal led and mildly distended. There is calcified atherosclerosis of the aorta and many of the other arter ies. Contrast from earlier CT examination partially opacifies the urinary tract. Much of the bladder is decompressed by the Terrell catheter. There is a surgical anastomosis in the rectum. The colon is de compressed from the splenic flexure through the rectum. IMPRESSION: 1. Large volume of free intraperitoneal gas, predominantly in the upper abdomen, of unclear etiology. 2. Moderate volume of ascites. 3. Gallbladder wall thickening and distention of uncertain significance. 4. Right-sided hydropneumothorax without significant change from earlier CT. 5. Airspace opacities of the visualized lung bases, consistent with pneumonia and/or pulmonary edema. Reviewed, dictated and finalized at location A. IMPRESSION: 1. Large volume of free intraperitoneal gas, predominantly in the upper abdomen , of unclear etiology. 2. Moderate volume of ascites. 3. Gallbladder wall thickening and distention of uncertain significance. 4. Right-sided hydropneumothorax without significant change from earlier CT. 5. Airspace opacities of the visualized lung bases, consistent with pneumonia a nd/or pulmonary edema.
--- NOTE | ~2019-11-06 | XR_ITS ---
XR chest ET placement 11/06/2019 15:23 Indication: Respiratory distress. Post code. Postintubation. Procedure: AP portable chest Comparison: Comparison to multiple prior studies sequentially, with oldest reviewed study dated 04/06. Findings: There is chronic elevation of the right diaphragm. Endotracheal tube tip approximately 2.5 cm above the jono. Extensive right-sided airspace disease. There is gas beneath the right diaphragm which may relate to bowel, although free air is not excluded. Impression: 1: Extensive right-sided airspace disease, suspicious for pneumonia. 2: Moderate gas beneath the right diaphragm. Free intraperitoneal air cannot be excluded. Reviewed, dictated and finalized at location A. Impression: 1: Extensive right-sided airspace disease, suspicious for pneumonia. 2: Moderate gas beneath the right diaphragm. Free intraperitoneal air cannot b e excluded.
[2019-11-06 15:28] LABS: Alveolar/Arterial O2 Gradient 437.1 mmHg; Base Excess ABG -4.9 mEq/l (+/-2.0); Carboxyhemoglobin 0.6 % THb (0-2.0); Fractional Inspired Oxygen 100 %; Methemoglobin ABG 0.3 %THb (0-1.5); Oxygen Content ABG 11.9 %vol (16.0-22.0); Oxygen Saturation ABG 98.8 % (95.0-100.0); Oxyhemoglobin 97.6 % THb (90.0-100.0); PO2 ABG 194.4 mmHg (80.0-100.0); PO2 FiO2 Ratio Arterial Blood 1.94 %; Reduced Hemoglobin 1.5 %THb (0-5.0); Total Hemoglobin 8.3 g/dL (12.0-18.0)
[2019-11-06 15:29] LABS: Device AMBU BAG; Modified Allen's Test Pass; PCO2 ABG 81.5 mmHg (35.0-45.0); Site Drawn RIGHT RADIAL; pH ABG 7.105 (7.350-7.450)
--- NOTE | 2019-11-06 15:32 | ECG_ITS ---
Measurements Intervals [place] Rate: 106 P: OR: 0 QRS: 209 QRSD: 90 T: 65 QT: 350 QTc: 466 Interpretive Statements ATRIAL FIBRILLATION WITH RAPID VENTRICULAR RESPONSE VENTRICULAR PREMATURE COMPLEX RIGHT AXIS DEVIATION BORDERLINE ST-T WAVE ABNORMALITY- INF/LAT LEADS ABNORMAL ECG Electronically Signed On 11-06-2019 15:54:04 CDT by Honorio Mccarthy D.O.
[2019-11-06 15:49] LABS: Hematocrit 25.2 % (37.0-47.0); Hemoglobin 7.6 g/dL (12.0-15.0); Mean Corpuscular HGB Conc 30.2 g/dl (32-36); Mean Corpuscular Hemoglobin 23.5 pg (26-34); Mean Corpuscular Volume 77.8 fl (80-100); Platelet Count Result 490 k/mm3 (150-375); Red Blood Count 3.24 M/mm3 (4.2-5.4); Red Cell Distribution Width 17.4 % (11.5-14.5)
[2019-11-06] MEDS: DOPamine 400 MG/D5W 250 ML 400 MG/250 ML BAG 250 MG IV CONT (15:57)
[2019-11-06 16:01] LABS: Anion Gap 9 mmol/L (8-16); Blood Urea Nitrogen 17 mg/dL (7-17); Calcium 8.3 mg/dL (8.4-10.2); Carbon Dioxide 26 mmol/L (22-30); Chloride 86 mmol/L (98-107); Estimated Glomerular Filt Rate > 60; Glucose 151 mg/dL (65-105); Potassium 5.5 mmol/L (3.4-5.0); Sodium 121 mmol/L (137-145)
[2019-11-06 16:03] LABS: Lactic Acid Reflex 6.2 mmol/L (0.7-2.1)
[2019-11-06 16:04] LABS: INR 1.4; Total Cells Counted 100
[2019-11-06 16:05] LABS: Band Neutrophils Percent 13 % (0-6); Lymphocytes Percent Manual 15 % (18-44); Metamyelocytes Percent 2 %; Monocytes Percent Manual 10 % (3-9); Neutrophils Absolute Manual 30.66 K/mm3 (1.7-7.2); Neutrophils Percent Manual 60 % (46-73); Partial Thromboplastin Time 33.3 SECONDS (22.3-36.8); Platelet Estimate Increased (Adequate)
[2019-11-06 16:07] LABS: D Dimer 3.16 ug/mL (<0.48)
[2019-11-06 16:14] LABS: Troponin I 0.044 ng/mL (0.000-0.034)
--- NOTE | 2019-11-06 17:36 | ED.GENADULT ---
HPI - General Adult General Chief complaint: Cardiac Arrest/CPR Stated complaint: RESP DISTRESS Time Seen by Provider: 11/06/19 14:45 Source: family and EMS History of Present Illness HPI narrative: Patient is a 74 y/o female brought in by EMS for respiratory distress. Per EMS, they were called for SOB and patient appeared to be in respiratory distress. They attempted to intubate the patient after administering Etomidate, Ketamine and Versed, but was not able to intubate the patient. The patient was unresponsive and bagged. She is not able to answer any question due to being responsive. Patient's son states that she has not been feeling well for a couple days. She was complaining of SOB. Prior to calling EMS, patient was looking worse and requested EMS according to her son. Related Data Home Medications Medication Instructions Recorded Confirmed amlodipine 5 mg tablet 5 mg PO DAILY 01/09/19 10/13/19 cholecalciferol (vitamin D3) 25 1,000 unit PO DAILY 01/09/19 10/13/19 mcg (1,000 unit) capsule fexofenadine [Disha Allergy] 180 mg PO DAILY 08/08/19 10/13/19 doxazosin 4 mg tablet 4 mg PO DAILY 08/29/19 10/13/19 Allergies Allergy/AdvReac Type Severity Reaction Status Date / Time azithromycin Allergy Mild Unknown Verified 09/20/19 13:11 erythromycin base Allergy Mild Unknown Verified 09/20/19 13:11 Latex, Natural Rubber Allergy Mild Rash Verified 09/20/19 13:11 Aminoglycosides Allergy Unknown Unknown Verified 09/20/19 13:11 bacitracin Allergy Unknown Unknown Verified 09/20/19 13:11 neomycin Allergy Unknown Unknown Verified 09/20/19 13:11 polymyxin B Allergy Unknown Unknown Verified 09/20/19 13:11 PLASTICS Allergy Mild Unknown Uncoded 09/20/19 13:11 Review of Systems Review of Systems: ROS unobtainable: Yes unobtainable due to medical condition and unobtainable due to mental status PMFSH Past Medical History Medical History (Updated 11/06/19 @ 22:35 by Carmenza Patiño MD) Anxiety Basal cell carcinoma Excised from the nose in 2014. Chronic anemia Chronic neck pain Colon polyps COPD with asthma Environmental allergies Essential hypertension Grade II diastolic dysfunction Pseudomonas pneumonia (~07/2019) Squamous cell carcinoma of skin of right lower extremity (~2002) Tobacco dependence Type 2 diabetes mellitus without complications Vitamin D deficiency Surgical History Surgical History (Updated 11/06/19 @ 21:04 by Philly Benz PA-C) History of colon resection (~1997) For benign colon polyps History of removal of pigmented skin lesion Removed from her nose and leg 2003 and 2000 respectively. Family History Family History Mother Diabetes mellitus Congestive heart disease Hypertension Father Emphysema lung Sibling Diabetes mellitus Social History Social History (Updated 11/06/19 @ 21:06 by Philly Benz PA-C) Social History: The patient is and has 2 children. She lives with her son and [id number] in [place]. 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 She has smoked between a half and three fourths of a pack of cigarettes per day for over 50 years, and still smokes a few few cigarettes a day. No illicit substance use. Her son Jose Joseph is her surrogate decision-maker. He wishes her to be a full code at this time. Smoking packs per day: 0.5 Smoking cigarettes per day: 10.0 Years smoked: 42 Smoking pack-years: 21.00 Smoking status: Current every day smoker Tobacco type: cigarettes Second hand tobacco smoke exposure: Yes Additional smoking assessment comments: maybe 5 cigarettes Alcohol intake: never Substance use: never Substance use type: does not use Gender identity (if verbalized by the patient): Female Spiritual care concerns: No Exam Const: General: ill appearing and lethargic Orientation/consciousness: patient obtunded HENMT: Head: normocephalic Ears: e
[2019-11-06] MEDS: PROPOFOL IV EMULSION 100 ML 4.8 MG IV CONT (17:52)
--- NOTE | 2019-11-06 18:45 | PC.NURSE ---
1448 CPR started on pt Code Blue Called, See code sheet for further instructions [address] scan
[2019-11-06 18:46] LABS: Reflex Lactic Acid Yes or No Add Lactic
--- NOTE | 2019-11-06 18:50 | PC.NURSE ---
this RN called [facility] to take pt down for scan on ABD. Per [facility] they have someone on their table and will call when they are ready.
--- NOTE | 2019-11-06 19:00 | PC.NURSE ---
call in regards to pt. Wanting to know about Pts Abd scan.
[2019-11-06 19:10] LABS: Troponin I 0.242 ng/mL (0.000-0.034)
[2019-11-06 19:31] LABS: Lactic Acid 1.9 mmol/L (0.7-2.1)
--- NOTE | 2019-11-06 20:00 | PM.CNGS ---
Assessment and Plan Assessment and plan (1) Intra-abdominal free air of unknown etiology: Code(s): K66.8 - Other specified disorders of peritoneum Status: Acute Assessment and Plan: I have reviewed the CT of the chest, abdomen, and pelvis. The patient is in septic shock from an unknown source. She has evidence of free air in her abdomen. I discussed with the patient's son that this could represent a perforation of bowel. There is no clear source on the CT to suggest perforated ulcer versus other source throughout her bowel. I reviewed the imaging with Radiology and there does appear to be a large hydropneumothorax as well. It is unclear whether the 2 are related. She does have a remote history of pneumonia. I discussed the serious condition of this patient with her son. The findings on the CT suggest that she will not likely survive without emergent surgery. I also discussed that even with surgery her chances of survival are minimal. With septic shock, source control will provide the best chance of showing any sign of improvement. She has already been started on broad-spectrum IV antibiotics and fluid resuscitation. She is also on Levophed currently. The son would like us to try surgery if that does offer her a chance at survival. I have recommended exploratory laparotomy with possible bowel resection. I also discussed that I will place a chest tube for the large hydropneumothorax. This will hopefully help to stabilize the patient prior to proceeding with surgery. Questions were answered, and we will be proceeding with chest tube placement and then emergent exploratory laparotomy. (2) Hydropneumothorax: Code(s): J94.8 - Other specified pleural conditions Status: Acute (3) Acute respiratory failure with hypoxia and hypercapnia: Code(s): J96.01 - Acute respiratory failure with hypoxia; J96.02 - Acute respiratory failure with hypercapnia Status: Acute (4) Cardiopulmonary arrest: Code(s): I46.9 - Cardiac arrest, cause unspecified Status: Acute (5) Septic shock: Code(s): A41.9 - Sepsis, unspecified organism; R65.21 - Severe sepsis with septic shock Status: Acute History of Present Illness Consult details Consult date: 11/07/19 Reason for consult: other (Abnormal CT chest) Requesting physician: Carmenza Patiño MD Narrative: This is a 74-year-old woman who I am asked to evaluate for an abnormal finding on CT chest. She presented to the emergency department via EMS with acute respiratory failure. She is currently intubated and unresponsive. All history is obtained from the ED physician and the patient's son. She has a prior history of COPD and CHF. She was experiencing some right-sided chest pain and right abdominal pain off and on for the past 5-7 days. Apparently today she became acutely worse and EMS was called. In the emergency department she appeared to lose a pulse and CPR was initiated. The ED physician states that CPR was only done for about 3-5 minutes before regaining a pulse. Sepsis protocol was initiated and she was fluid resuscitated. She was started on broad-spectrum IV antibiotics. Once he was slightly more stable, she was sent to get a CT chest. This showed evidence of large right hydropneumothorax as well as evidence of free intraperitoneal air. She was then also sent for a CT of her abdomen and pelvis. The patient does still smoke but her son does not think she is on any NSAIDs or blood thinners. She does not have a history of peptic ulcer disease, but her son states she is easily stressed out. She has not had a prior history of diverticulitis, but she did have a history of polyps and had a partial colectomy many years ago. Her colonoscopies have been performed routinely. Review of Systems Review of Systems: ROS unobtainable: Yes unobtainable due to endotracheal tube and unobtainable due to mental status PMFSH Past Medical History Medical History (R
--- NOTE | 2019-11-06 20:00 | PM.IMHP ---
H&P: HPI History of Present Illness Date/Time: 11/06/19. The patient was seen and evaluated in the emergency department in 20:00. Chief complaint: Narrative: Radha Loja is a 74-year-old female smoker with multiple medical problems including COPD, hypertension, and type 2 diabetes mellitus who presented to the emergency department earlier today via EMS from home with reports of respiratory distress. She is currently sedated and intubated and thus all of this history is obtained via review her electronic medical records as well as discussions with her son who was at bedside. The patient is known to the hospital service that she was admitted to us in July with Pseudomonas pneumonia and new diagnosis of diastolic congestive heart failure. Since that time she has been weak, and has her good and bad days however over the past 5 days or so she has been feeling much worse. Patient apparently told her son on that she was having some discomfort in her right flank up into the right shoulder which she attributed to a muscle strain. She was using topical analgesics which did not seem to give her any meaningful relief. Her appetite has also been poor and she is just not wanting to eat. This morning her son and [id number] talked her into coming to the emergency department, but she told them she was needed to freshen up first. After cleaning up in the bathroom she came into the living room and sat down in the recliner, seem to be uncomfortable, and it sounds as though she went unresponsive briefly and seemed to be in respiratory distress. In route to the hospital her respiratory status declined and EMS was unable to secure the airway. She was being bagged on arrival to the emergency department, her abdomen was very distended, and she had several episodes of emesis. She did become bradycardic, a pulse was unable to be palpated definitely, and compressions were started for short period of time. With dopamine her blood pressures and heart rate have improved. Pertinent findings on imaging today include right hydropneumothorax and free air in abdomen. Dr. Menendez placed a chest tube at bedside which yielded at least 500 mL's of foul-smelling fluid consistent with empyema and she is now status post laparotomy with repair of diaphragmatic defect attributed to erosion through the diaphragm due to the empyema, and washout with drain placement. Review of Systems Review of Systems: Narrative: Unable to be obtained given her clinical condition. PMFSH Past Medical History Medical History Anxiety Basal cell carcinoma Excised from the nose in 2014. Chronic anemia Chronic neck pain Colon polyps COPD with asthma Environmental allergies Essential hypertension Grade II diastolic dysfunction Pseudomonas pneumonia (~07/2019) Squamous cell carcinoma of skin of right lower extremity (~2002) Tobacco dependence Type 2 diabetes mellitus without complications Vitamin D deficiency Surgical History Surgical History History of colon resection (~1997) For benign colon polyps History of removal of pigmented skin lesion Removed from her nose and leg 2003 and 2000 respectively. Family History Family History Mother Diabetes mellitus Congestive heart disease Hypertension Father Emphysema lung Sibling Diabetes mellitus Social History Social History Social History: The patient is and has 2 children. She lives with her son and [id number] in [place]. 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 She has smoked between a half and three fourths of a pack of cigarettes per day for over 50 years, and still smokes a few few cigarettes a day. No illicit substance use. Her [facility]
[2019-11-06 20:23] LABS: Alveolar/Arterial O2 Gradient 417.9 mmHg; Base Excess ABG -1.6 mEq/l (+/-2.0); Fractional Inspired Oxygen 80 %; HCO3 ABG 25.2 mEq/l (22.0-26.0); Oxygen Content ABG 12.9 %vol (16.0-22.0); Oxygen Saturation ABG 96.5 % (95.0-100.0); Oxyhemoglobin 95.1 % THb (90.0-100.0); PCO2 ABG 53.2 mmHg (35.0-45.0); PO2 ABG 96.6 mmHg (80.0-100.0); PO2 FiO2 Ratio Arterial Blood 1.21 %; Total Hemoglobin 9.5 g/dL (12.0-18.0); pH ABG 7.293 (7.350-7.450)
[2019-11-06 20:26] LABS: Device VENTILATOR; Modified Allen's Test Pass; Site Drawn RIGHT RADIAL
--- NOTE | 2019-11-06 20:26 | PC.NURSE ---
dr. saha @ bedside
[2019-11-06 20:27] LABS: Arterial Blood Gas PEEP 5 cmH2O; Arterial Blood Gas Tidal Volume 350 ml; Arterial Blood Gas Vent Mode CMV; Arterial Blood Gas Ventilator rate 12 /MIN
[2019-11-06] MEDS: NOREPINEPHRINE 8 MG/D5W 250 ML 8 MG/250 ML BAG 9.4 MG IV CONT (20:46)
--- NOTE | 2019-11-06 21:00 | P.OP_ITS ---
Procedure Note - Detailed Date of procedure: 11/07/19 Pre-op diagnosis: 1. Right hydropneumothorax. 2. Intra-abdominal free air of unknown etiology. 3. Septic shock Post-op diagnosis: other ( right empyema) Procedure performed: Right tube thoracostomy Description of procedure: * procedural consent was obtained from the patient's son who is there at the bedside. Patient is currently intubated and sedated. Patient's right arm was raised over her head, and her right chest area was prepped and draped in sterile fashion using chlorhexidine prep. A 2 cm incision was made in the mid axillary line near the level of the nipple. Careful blunt dissection was carried out through the subcu space directly to the intercostal muscles. Blunt dissection was then carried out over the 6th rib into the 5th intercostal space. I then bluntly entered in through the pleura using a curved hemostat. An immediate gush of purulence fluid was noted. A 28 [place] chest tube was then advanced into the pleural cavity. This was then sutured in place using 0 silk drain stitches. The chest tube was attached to the Pleur-Evac with suction. Approximately 150 mL purulence was drained into the chest tube, but at least another 2-300 mL drained around the chest tube while at was placed. Adaptic gauze, 4 x 4 gauze, and tape were then applied, and chest tube was placed to -20 cm H2O. Anesthesia: none Surgeon: Neftaly Menendez DO Estimated blood loss (mL): 2 Drains: Yes ( 28 [place]ander chest tube) Complications: No immediate complications Condition: critical Disposition: ICU
--- NOTE | 2019-11-06 21:22 | WPDANESEPPF ---
Anes - Initial Pre Proc Eval Procedure: Diagnostic Lap Date/Time: 11/06/19 21:22 Surgeon: Shon Pre Op Diagnosis: s/p cardiopulmonary arrest, pneumoperitoneum Patient Data Age: 74 Gender: F Height: 1.57 m Weight: 79.5 kg Last Vital Signs Temp 36.6 C 11/06/19 16:41 Pulse 119 H 11/06/19 20:46 Resp 20 11/06/19 20:19 BP 113/46 L 11/06/19 20:46 Pulse Ox 95 11/06/19 20:30 Allergies Allergy/AdvReac Type Severity Reaction Status Date / Time azithromycin Allergy Mild Unknown Verified 09/20/19 13:11 erythromycin base Allergy Mild Unknown Verified 09/20/19 13:11 Latex, Natural Rubber Allergy Mild Rash Verified 09/20/19 13:11 Aminoglycosides Allergy Unknown Unknown Verified 09/20/19 13:11 bacitracin Allergy Unknown Unknown Verified 09/20/19 13:11 neomycin Allergy Unknown Unknown Verified 09/20/19 13:11 polymyxin B Allergy Unknown Unknown Verified 09/20/19 13:11 PLASTICS Allergy Mild Unknown Uncoded 09/20/19 13:11 Home Medications Medication Instructions Recorded Confirmed Type amlodipine 5 mg tablet 5 mg PO DAILY 01/09/19 10/13/19 History cholecalciferol (vitamin D3) 25 1,000 unit PO DAILY 01/09/19 10/13/19 History mcg (1,000 unit) capsule montelukast 10 mg tablet 10 mg PO DAILY #90 tablet 02/13/19 10/13/19 Rx hydralazine 50 mg tablet See Rx Instructions .ROUTE 06/19/19 10/13/19 Rx .COMPLEX #270 tablet irbesartan 150 mg tablet See Rx Instructions .ROUTE 07/31/19 10/13/19 Rx .COMPLEX #90 tablet metoprolol succinate 50 mg See Rx Instructions .ROUTE 07/31/19 10/13/19 Rx tablet,extended release 24 hr .COMPLEX #90 tablet fexofenadine [Disha Allergy] 180 mg PO DAILY 08/08/19 10/13/19 History budesonide-formoterol HFA 160 See Rx Instructions .ROUTE 08/17/19 10/13/19 Rx mcg-4.5 mcg/actuation aerosol .COMPLEX #30.6 inhaler inhaler piroxicam 10 mg capsule See Rx Instructions .ROUTE 08/17/19 10/13/19 Rx .COMPLEX #90 cap doxazosin 4 mg tablet 4 mg PO DAILY 08/29/19 10/13/19 History escitalopram oxalate 10 mg tablet 10 mg PO DAILY #90 tablet 08/29/19 10/13/19 Rx metformin 500 mg tablet,extended 1,000 mg PO DAILY #180 tablet 08/29/19 10/13/19 Rx release 24 hr albuterol sulfate 2.5 mg INHALATION Q4-6H PRN #180 ml 09/20/19 10/13/19 Rx levofloxacin 750 mg tablet 750 mg PO Q24H #7 tablet 09/20/19 10/13/19 Rx prednisone 50 mg tablet 50 mg PO DAILY #5 tablet 09/20/19 10/13/19 Rx simvastatin 10 mg tablet 10 mg PO QPM #90 tablet 09/20/19 10/13/19 Rx ipratropium 0.5 mg-albuterol 3 mg 3 ml INHALATION Q4H PRN #540 ml 10/11/19 10/11/19 Rx (2.5 mg base)/3 mL nebulization soln lorazepam 0.5 mg tablet 0.5 mg PO BID PRN #60 tablet 10/17/19 Rx furosemide 20 mg tablet See Rx Instructions .ROUTE 10/18/19 Rx .COMPLEX #30 tablet potassium chloride 10 mEq See Rx Instructions .ROUTE 10/18/19 Rx tablet,extended release .COMPLEX #30 tablet fluticasone propionate 50 1 spray NASAL DAILY #9.9 ml 11/03/19 Rx mcg/actuation nasal spray,suspension Laboratory Tests 11/06/19 11/06/19 11/06/19 15:10 15:38 15:38 WBC 42.0 K/mm3 H K/mm3 (4.5-10.0) RBC 3.24 M/mm3 L M/mm3 (4.2-5.4) Hgb 7.6 g/dL L g/dL (12.0-15.0) Hct 25.2 % L % (37.0-47.0) MCV 77.8 fl L fl (80-100) MCH 23.5 pg L pg (26-34) MCHC 30.2 g/dl L g/dl (32-36) RDW 17.4 % H % (11.5-14.5) Plt Count 490 k/mm3 H k/mm3 (150-375) MPV 10.0 fl fl (7.4-10.4) Immature Gran % (Auto) Not Reportable Neut % (Auto) Not Reportable Lymph % (Auto) Not Reportable [place] % (Auto) Not Reportable Eos % (Auto) Not Reportable Baso % (Auto) Not Reportable Lymph # (Auto) Not Reportable [place] # (Auto) Not Reportable Eos # (Auto) Not Reportable Baso # (Auto) Not Reportable Abs Immat Gran (auto) Not Reportable Absolute [place]
[2019-11-06 21:39] LABS: Alanine Aminotransferase 24 U/L (4-35); Albumin Level 2.2 g/dL (3.5-5.1); Alkaline Phosphatase 176 U/L (38-126); Aspartate Amino Transferase 45 U/L (14-36); Bilirubin,Total 0.6 mg/dL (0.2-1.3); Magnesium 1.6 mg/dL (1.6-2.3)
[2019-11-06 21:47] LABS: CRP 23.2 mg/dL (<1.0)
--- NOTE | 2019-11-06 22:09 | PC.NURSE ---
lat entry , dr. saha at bedside for a right chest tube placement.
--- NOTE | 2019-11-06 22:20 | PM.PROC ---
Procedure Note - Detailed Date of procedure: 11/07/19 Pre-op diagnosis: 1. Free intraperitoneal air of unknown etiology 2. Right empyema 3. Septic Shock Post-op diagnosis: other (Perforation of right hemidiaphragm, intraabdominal abscess) Procedure performed: 1. Exploratory laparotomy with drainage of intra-abdominal abscess 2. Massive intra-abdominal adhesiolysis 3. Repair of perforated right hemidiaphragm Description of procedure: procedural consent was obtained from the son as the patient was intubated and unresponsive. She was brought back to the operating suite. She was placed supine on operating table. General anesthetic was administered by the Anesthesia Department. Her abdomen was prepped and draped in sterile fashion using chlorhexidine prep. A 30 cm vertical midline incision was made from the upper abdomen down to the infraumbilical region using a 10 blade scalpel. Electrocautery was used for hemostasis and for dissection down through Darwin's fascia. The linea alba was then incised using electrocautery and the peritoneum was entered using electrocautery. There were adhesions of the transverse colon up to the linea alba as this was incised. Due to the adhesions, a colotomy was made on the anterior surface of the transverse colon. This was immediately identified and repaired to prevent any spillage of bowel contents. The colotomy was closed using 3 0 silk seromuscular imbricating sutures. This was an inherent bowel injury due to the nature of the surgery and the extensive adhesions. Further adhesiolysis was performed, and then the purulence fluid was identified. Adhesiolysis was extensive including much of the omentum and small bowel. Over 1 L of purulence fluid was drained from the abdominal cavity. After completing the adhesiolysis, I was able to carefully inspect the entire colon. I identified the cecum, and no appendix was identified. The cecum was then traced along the ascending colon to the transverse colon and then across to the descending and sigmoid colon. There were dense adhesions down in the left lower quadrant, and I suspect the prior colon resection involved the left colon or sigmoid colon. I then inspected the anterior surface of the stomach on to the 1st portion of the duodenum. No evidence of perforation was identified. I then ran the entire small intestine from the ligament of Treitz to the cecum. There is no evidence of small-bowel obstruction, ischemia, or perforation. I then carefully inspected the right upper quadrant and a large amount of the purulence fluid was coming from around the right lobe of the liver. There was a thick exudate over the dome of the liver and right hemidiaphragm. I identified a 2 cm perforation at the right lateral hemidiaphragm. The surrounding tissue appeared very friable around this. The diaphragmatic perforation was closed using 2 0 Prolene simple interrupted sutures. A total of 4 sutures were placed to adequately approximate the tissue, but even with this the tissue still appeared very friable. I then irrigated the entire abdomen using 4 L of sterile saline. NG tube placement was confirmed within the body of the stomach. I then placed a 19 round Erasmo drain through an incision in the right lower quadrant and advanced this over the dome of the right lobe of the liver. I then also placed another 19 round Erasmo drain through an incision in the left lower quadrant and advanced this into the left upper quadrant and overlying the anterior surface of the stomach. One final inspection was made in the abdominal cavity, and no other abnormalities were noted. The fascia was then closed using 0 PDS running suture starting from each end and meeting in the middle. The subcu space was irrigated further with sterile saline, and then the skin was approximated using a skin stapler with ashish spaced widely to allow for drainage. Drain sponges were then applied followed by 4 x 4 gauze and Medipore ta
--- NOTE | 2019-11-06 23:05 | P.PCNANE_ITS ---
Arterial Cath Proc Note Consent: I have discussed with the patient/family/POA, the non-emergent placement of an arterial catheter, including its clinical necessity/indication and associated potential risks and complications. The patient/family/POA and/or understand(s) and acknowledge(s) the need to proceed with the arterial catheter insertion as an important element of the patient's clinical management. Given emergent patient conditions, temporal constraints may have precluded informed consent. Time-Out: A pre-procedural Time-Out was completed immediately before starting the procedure and confirmed: Patient Identification, Site, Procedure, Patient Position and the Availability of Requisite Equipment. 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
--- NOTE | 2019-11-06 23:40 | SUR.OPER ---
EBL:50cc
--- NOTE | 2019-11-06 23:42 | SUR.OPER ---
URINE: 250cc amalia
[2019-11-07] VITALS (41 sets, daily range): BP systolic 83–139; BP diastolic 34–60; PULSE 76–99; RESP 20–23; TEMP 35.8–37.1; O2SAT 92–99; BMI 27.8
[2019-11-07] MEDS: NOREPINEPHRINE 8 MG/D5W 250 ML 8 MG/250 ML BAG 28.1 MG IV CONT (00:21)
[2019-11-07 00:49] LABS: Base Excess ABG -3.2 mEq/l (+/-2.0); Carboxyhemoglobin 0.6 % THb (0-2.0); Fractional Inspired Oxygen 70 %; HCO3 ABG 22.5 mEq/l (22.0-26.0); Methemoglobin ABG 0.2 %THb (0-1.5); Oxygen Content ABG 11.2 %vol (16.0-22.0); Oxygen Saturation ABG 96.2 % (95.0-100.0); Oxyhemoglobin 93.9 % THb (90.0-100.0); PCO2 ABG 43.7 mmHg (35.0-45.0); PO2 ABG 89.1 mmHg (80.0-100.0); PO2 FiO2 Ratio Arterial Blood 1.27 %; Reduced Hemoglobin 5.3 %THb (0-5.0); Total Hemoglobin 8.4 g/dL (12.0-18.0)
[2019-11-07 00:50] LABS: Arterial Blood Gas Vent Mode CMV; Arterial Blood Gas Ventilator rate 20 /MIN; Device VENTILATOR; Modified Allen's Test Pass; Site Drawn ARTLINE
[2019-11-07 00:51] LABS: Arterial Blood Gas PEEP 5 cmH2O; Arterial Blood Gas Pressure Support 0 cmH2O; Arterial Blood Gas Tidal Volume 350 ml
[2019-11-07 01:09] LABS: Hematocrit 25.3 % (37.0-47.0); Hemoglobin 7.7 g/dL (12.0-15.0)
[2019-11-07 01:14] LABS: INR 1.5; Prothrombin Time 17.7 Seconds (11.1-14.7)
[2019-11-07] MEDS: SODIUM CHLORIDE 0.9% IV 1,000 ML 125 ML IV CONT ×2 (01:18→09:41)
[2019-11-07 01:19] LABS: Lactic Acid Reflex 2.1 mmol/L (0.7-2.1)
[2019-11-07 01:21] LABS: Alanine Aminotransferase 20 U/L (4-35); Albumin Level 1.7 g/dL (3.5-5.1); Alkaline Phosphatase 75 U/L (38-126); Anion Gap 7 mmol/L (8-16); Aspartate Amino Transferase 43 U/L (14-36); Bilirubin,Total 0.6 mg/dL (0.2-1.3); Blood Urea Nitrogen 22 mg/dL (7-17); Calcium 7.2 mg/dL (8.4-10.2); Carbon Dioxide 26 mmol/L (22-30); Chloride 91 mmol/L (98-107); Estimated CRCL calculation 69 ml/min; Estimated Glomerular Filt Rate > 60; Glucose 110 mg/dL (65-105); Magnesium 1.4 mg/dL (1.6-2.3); Potassium 4.1 mmol/L (3.4-5.0); Sodium 124 mmol/L (137-145)
--- NOTE | 2019-11-07 01:26 | ADMGEN ---
This patient, Radha Loja, was admitted to Intensive Care Unit-3. Patient/family oriented to hospital policies and general routines including ID bracelet, bed and alarms, visiting hours, pain management, procedures, bathroom and other care routines, personal items, smoking policy, room service/diet, and visiting hours. Valuables list has been completed. Information on how to activate the Rapid Response Team has been discussed. Patient/Family are encouraged to report perceived risks to care and to ask questions if they do not understand what they are told or what they should do. arrived from OR approx [id number]
[2019-11-07 01:28] LABS: Albumin Level 1.7 g/dL (3.5-5.1); Amylase 34 U/L (30-110); Lactate Dehydrogenase 614 U/L (313-618); Triglycerides 61 mg/dL (<150)
[2019-11-07 01:36] LABS: Troponin I 0.307 ng/mL (0.000-0.034)
[2019-11-07 01:51] LABS: Cholesterol < 50 mg/dL (0-200)
[2019-11-07] MEDS: MAGNESIUM SULF 2 GM/WATER 50ML 2 GM/50 ML BAG IVPB (02:30)
[2019-11-07] MEDS: MAGNESIUM SULFATE 3GM/D5W100ML 3 GM/100 ML BAG IVPB (02:32)
[2019-11-07 02:41] LABS: pH Pleural Fluid 6.777 (7.210-7.500)
[2019-11-07] MEDS: NOREPINEPHRINE 8 MG/D5W 250 ML 8 MG/250 ML BAG 56.3 MG IV CONT ×2 (04:08→04:35)
[2019-11-07 04:22] LABS: Appearance Pleural Fluid Turbid (Clear); Color Pleural Fluid Brown (Colorless); Pleural fluid source Pleural fluid
[2019-11-07 05:23] LABS: Alveolar/Arterial O2 Gradient 361.5 mmHg; Base Excess ABG -0.9 mEq/l (+/-2.0); Carboxyhemoglobin 0.5 % THb (0-2.0); Fractional Inspired Oxygen 70 %; HCO3 ABG 25.2 mEq/l (22.0-26.0); Methemoglobin ABG 0.3 %THb (0-1.5); Oxygen Content ABG 14.7 %vol (16.0-22.0); Oxygen Saturation ABG 95.8 % (95.0-100.0); Oxyhemoglobin 94.7 % THb (90.0-100.0); PCO2 ABG 48.4 mmHg (35.0-45.0); PO2 ABG 85.6 mmHg (80.0-100.0); PO2 FiO2 Ratio Arterial Blood 1.22 %; Reduced Hemoglobin 4.5 %THb (0-5.0); pH ABG 7.335 (7.350-7.450)
[2019-11-07 05:24] LABS: Arterial Blood Gas PEEP 5 cmH2O; Arterial Blood Gas Vent Mode CMV; Arterial Blood Gas Ventilator rate 20 /MIN; Device VENTILATOR; Modified Allen's Test Pass; Site Drawn ARTLINE
[2019-11-07 05:25] LABS: Arterial Blood Gas Tidal Volume 350 ml
[2019-11-07 05:42] LABS: Lymphocytes Pleural Fluid 20 %; Monocytes Pleural Fluid 16 %; Neutrophils Pleural Fluid 53 % (0-25)
[2019-11-07 05:43] LABS: Macrophages Pleural Fluid 11 %
[2019-11-07 07:11] LABS: Basophils Percent Auto 0.1 % (0.2-1.2); Hematocrit 32.1 % (37.0-47.0); Hemoglobin 10.4 g/dL (12.0-15.0); Immature Granulocyte Absolute 0.31 K/mm3 (0.00-0.031); Lymphocytes Absolute Auto 0.53 K/mm3 (0.9-3.2); Lymphocytes Percent Auto 1.7 % (18.3-44.2); Mean Corpuscular HGB Conc 32.4 g/dl (32-36); Mean Corpuscular Hemoglobin 24.5 pg (26-34); Mean Corpuscular Volume 75.7 fl (80-100); Mean Platelet Volume 9.2 fl (7.4-10.4); Monocytes Absolute Auto 0.5 K/mm3 (0.1-0.6); Monocytes Percent Auto 1.5 % (2.6-8.5); Neutrophils Absolute Auto 29.3 K/mm3 (1.3-6.7); Neutrophils Percent Auto 95.7 % (45.5-73.1); Platelet Count Result 495 k/mm3 (150-375); Red Blood Count 4.24 M/mm3 (4.2-5.4); Red Cell Distribution Width 17.7 % (11.5-14.5); White Blood Count 30.7 K/mm3 (4.5-10.0)
[2019-11-07 07:23] LABS: Lactic Acid Reflex 2.1 mmol/L (0.7-2.1)
[2019-11-07 07:24] LABS: Alanine Aminotransferase 21 U/L (4-35); Albumin Level 1.9 g/dL (3.5-5.1); Alkaline Phosphatase 96 U/L (38-126); Anion Gap 8 mmol/L (8-16); Aspartate Amino Transferase 38 U/L (14-36); Bilirubin,Total 1.9 mg/dL (0.2-1.3); Blood Urea Nitrogen 21 mg/dL (7-17); Calcium 7.2 mg/dL (8.4-10.2); Carbon Dioxide 26 mmol/L (22-30); Chloride 89 mmol/L (98-107); Estimated CRCL calculation 56 ml/min; Estimated Glomerular Filt Rate > 60; Glucose 141 mg/dL (65-105); INR 1.4; Magnesium 2.7 mg/dL (1.6-2.3); Phosphorus 5.3 mg/dL (2.5-4.5); Potassium 4.2 mmol/L (3.4-5.0); Prothrombin Time 16.3 Seconds (11.1-14.7); Sodium 123 mmol/L (137-145)
[2019-11-07 07:26] LABS: Hypochromasia 1+ (NORMAL)
[2019-11-07 07:27] LABS: Burr Cells 1+ (NORMAL); Ovalocytes 1+ (NORMAL)
[2019-11-07] MEDS: PROPOFOL IV EMULSION 100 ML 3.3 MG IV CONT (08:18)
[2019-11-07] MEDS: FENTANYL 2,500MCG/NS250ML(*CRX 2,500 MCG/250 ML BAG IV CONT (08:19)
[2019-11-07] MEDS: SODIUM CHLORIDE 0.9% IV 1,000 ML 999 ML IV CONT (08:19)
[2019-11-07] MEDS: PANTOPRAZOLE SODIUM IV 40 MG VIAL IV PUSH (08:28)
[2019-11-07] MEDS: ENOXAPARIN 40 MG/0.4 ML SYRINGE SUB-Q (08:28)
--- NOTE | 2019-11-07 08:39 | WPDCNINT ---
Assessment and Plan Assessment and plan (1) Septic shock: Code(s): A41.9 - Sepsis, unspecified organism; R65.21 - Severe sepsis with septic shock Status: Acute Assessment and Plan: patient with septic shock likely related to empyema on the right side status post chest tube with purulent drainage - patient also has had a repair of the right hemidiaphragm - patient on vancomycin and Zosyn, switch Zosyn to imipenem - patient on Levophed, maintain MAP > 65 mmHg - blood, urine cultures have been obtained and pending, - pleural fluid Gram stain showing Gram-positive cocci in chains (2) Acute respiratory failure with hypoxia and hypercapnia: Code(s): J96.01 - Acute respiratory failure with hypoxia; J96.02 - Acute respiratory failure with hypercapnia Status: Acute Assessment and Plan: patient presented with increasing respiratory distress, EMS was unsuccessful in securing and airway and patient was being bagged EN route to the ER. She did have few episodes of emesis before being intubated. - Chest x-ray and ABGs reviewed, ventilator adjusted - patient sedated with propofol - start bronchodilators (3) Empyema of pleural space: Code(s): J86.9 - Pyothorax without fistula Status: Acute Assessment and Plan: status post chest tube placement by surgery, likely loculated. Chest x-ray reviewed showed proximal site port in the chest wall with subcutaneous emphysema. - Discussed with surgery, thinks it is probably loculated empyema, he will be arranging for patient's transferred to a tertiary hospital for higher level of care - continue antibiotics as above (4) Cardiopulmonary arrest: Code(s): I46.9 - Cardiac arrest, cause unspecified Status: Acute Assessment and Plan: patient with brief cardiac arrest, bradycardia and increased respiratory distress. Likely related to the respiratory event - brief CPR was performed, patient was intubated and started on dopamine infusion initially. - Patient follows commands, opens her eyes to name and nods to questions appropriately - elevated troponin likely related to cardiac arrest (5) Hydropneumothorax: Code(s): J94.8 - Other specified pleural conditions Status: Acute Assessment and Plan: patient with hydropneumothorax and chest CT status post chest tube in place (6) Hyponatremia: Code(s): E87.1 - Hypo-osmolality and hyponatremia Status: Acute Assessment and Plan: hypernatremia secondary to empyema, questionable SIADH - continue normal saline infusion, will monitor sodium levels (7) Elevated troponin: Code(s): R79.89 - Other specified abnormal findings of blood chemistry Status: Acute Assessment and Plan: likely related to respiratory distress, pneumonia, empyema, cardiac arrest, AFib RVR - No ST elevations noted in the EKG - continue to monitor telemetry (8) Type 2 diabetes mellitus without complications: Code(s): E11.9 - Type 2 diabetes mellitus without complications Status: Acute Assessment and Plan: continue Accu-Cheks, sliding scale insulin (9) CHF (congestive heart failure): Qualifiers: Heart failure chronicity: unspecified Heart failure type: unspecified Qualified Code(s): I50.9 - Heart failure, unspecified Code(s): I50.9 - Heart failure, unspecified Status: Acute Assessment and Plan: patient history of diastolic dysfunction, - currently intubated, chest x-ray does not show volume overload at this time - will be cautious with IV fluids (10) COPD with asthma: Code(s): J44.9 - Chronic obstructive pulmonary disease, unspecified Status: Acute Assessment and Plan: continue antibiotics mechanical ventilation, bronchodilators (11) DVT prophylaxis: Code(s): Z29.9 - Encounter for prophylactic measures, unspecified Status: Acute Assessment and Plan: DVT prophylaxis:
[2019-11-07] MEDS: IPRATROPIUM BR 0.02% INH SOLN 0.5 MG/2.5 ML VIAL INHALATION ×2 (09:30→14:05)
[2019-11-07] MEDS: ALBUTEROL SULFATE NEB 2.5 MG/0.5 ML INH INHALATION ×2 (09:31→14:05)
[2019-11-07 10:08] LABS: Reflex Lactic Acid Yes or No Add Lactic
[2019-11-07] MEDS: NOREPINEPHRINE 8 MG/D5W 250 ML 8 MG/250 ML BAG 46.9 MG IV CONT (10:35)
[2019-11-07 10:56] LABS: Lactic Acid 1.7 mmol/L (0.7-2.1)
[2019-11-07 12:35] LABS: Hemoglobin A1C 6.3 % (<5.7)
--- NOTE | 2019-11-07 13:05 | PM.PNGS ---
Progress Note: A&P Assessment and Plan (1) Empyema of pleural space: Code(s): J86.9 - Pyothorax without fistula Status: Acute Assessment and Plan: CXR reviewed. Chest tube side port just outside rib cage, but I was unable to advance the chest tube any further during the procedure, likely due to loculated empyema. Infection appears to be under control at the time, but will likely need thoracic surgery eval for further treatment. Discussed possible transfer to [facility] in [place]. Continue broad spectrum antibiotics and supportive care. (2) Severe sepsis: Code(s): A41.9 - Sepsis, unspecified organism; R65.20 - Severe sepsis without septic shock Status: Acute (3) Intra-abdominal abscess: Code(s): K65.1 - Peritoneal abscess Status: Acute Assessment and Plan: Monitor GRACIE drain output Midline wound high risk for infection, may need wound vac placed over incision eventually. (4) Diaphragm, rupture: Code(s): K44.9 - Diaphragmatic hernia without obstruction or gangrene Status: Acute Assessment and Plan: Suture repaired at time of Exploratory laparotomy, tissue very friable and high risk for recurrence. Subjective Subjective Date/Time Seen: 11/07/19 13:05 Patient remains intubated and sedated. Opening eyes and following commands. Levophed down to 17mcg/min. Making more urine. Exam Resp: Auscultation: diminished lung sounds on the right in the lower lung leong and tactile fremitus present on the right Other: Right chest tube in place with purulent output, slightly more serosanguinous this AM. GI: Inspection: distended and incision (Dressing dry) GI Palp: Yes abdominal tenderness, Yes Soft to palpation and Yes Other GI palpation findings present (GRACIE drains mostly serosanguinous) Auscultation: absent bowel sounds Objective Data Vital Signs Vital Signs: Vital Signs - 24 hr 11/06/19 15:00 11/06/19 16:41 11/06/19 17:00 Temperature 36.6 C Pulse Rate 122 H 55 L 115 H Respiratory Rate Blood Pressure 134/62 Pulse Oximetry 98 98 11/06/19 17:52 11/06/19 18:41 11/06/19 18:56 Temperature Pulse Rate 123 H 104 H 104 H Respiratory Rate 22 H 23 H 23 H Blood Pressure 82/53 L Pulse Oximetry 97 11/06/19 20:01 11/06/19 20:07 11/06/19 20:14 Temperature Pulse Rate 92 110 H 116 H Respiratory Rate 20 20 Blood Pressure 89/54 L 103/60 Pulse Oximetry 92 97 97 11/06/19 20:19 11/06/19 20:30 11/06/19 20:46 Temperature Pulse Rate 116 H 117 H 119 H Respiratory Rate 20 Blood Pressure 112/42 L 113/46 L Pulse Oximetry 98 95 11/06/19 21:25 11/07/19 00:00 11/07/19 00:21 Temperature 35.8 C L Pulse Rate 96 85 85 Respiratory Rate 32 H 20 Blood Pressure 101/57 L 96/35 L 96/35 L Pulse Oximetry 98 92 11/07/19 00:32 11/07/19 02:00 11/07/19 03:20 Temperature 37.1 C Pulse Rate 87 88 85 Respiratory Rate 20 20 Blood Pressure 83/47 L 120/34 L Pulse Oximetry 98 97 98 11/07/19 03:28 11/07/19 03:38 11/07/19 04:00 Temperature 36.0 C L 36.1 C L 36.1 C L Pulse Rate 89 88 94 Respiratory Rate 20 20 20 Blood Pressure 124/35 L 125/47 L 131/45 L Pulse Oximetry 98 98 97 11/07/19 04:08 11/07/19 04:35 11/07/19 04:38 Temperature 35.8 C L Pulse Rate 91 99 89 Respiratory Rate 21 H Blood Pressure 107/47 L 97/43 L 119/49 L Pulse Oximetry 97 11/07/19 05:10 11/07/19 05:38 11/07/19 05:50 Temperature 36.6 C Pulse Rate 94 90 90 Respiratory Rate 21 H Blood Pressure 121/42 L 124/44 L Pulse Oximetry 97 98 11/07/19 06:00 11/07/19 06:11 11/07/19 07:00 Temperature 36.6 C Pulse Rate 90 92 90 Respiratory Rate 21 H 21 H 21 H Blood Pressure 124/44 L 116/45 L Pulse Oximetry 98 11/07/19 07:40 11/07/19 08:00 11/07/19 08:18 Temperature 36.2 C L Pulse Rate 92 92 93 Respiratory Rate 21 H 21 H Blood Pressure 125/47 L 115/45 L Pulse Oximetry 99 11/07/19 08:19 11/07/19 08:35 11/07/19 08:47 Tem
[2019-11-07 13:09] LABS: Glucose Point of Care 138 (65-105)
[2019-11-07 13:55] LABS: SARS-CoV-2 RNA PCR Negative
--- NOTE | 2019-11-07 14:16 | WPDANESPN ---
Anes - Prog Note Post-Op Date/Time: 11/07/19 14:16 Cardiovascular status: other (patient septic) Respiratory status: other (on ventilator) Airway patency: other Mental status: other Post-Op hydration status: other Vital Signs: Last Vital Signs Temp 36.5 C 11/07/19 12:00 Pulse 89 11/07/19 14:06 Resp 20 11/07/19 14:06 BP 139/42 L 11/07/19 14:00 Pulse Ox 99 11/07/19 14:06 Pain Score (VAS): 0 I/O: Intake & Output 11/06/19 11/07/19 11/07/19 23:59 07:59 15:59 Intake Total 650 1550 1450 Output Total 1675 Balance 650 -125 1450 Laboratory Tests 11/07/19 05:02 11/07/19 05:02 11/06/19 11/06/19 11/06/19 15:10 15:38 15:38 WBC 42.0 H RBC 3.24 L Hgb 7.6 L Hct 25.2 L MCV 77.8 L MCH 23.5 L MCHC 30.2 L RDW 17.4 H Plt Count 490 H MPV 10.0 Immature Gran % (Auto) Not Reportable Neut % (Auto) Not Reportable Lymph % (Auto) Not Reportable [place] % (Auto) Not Reportable Eos % (Auto) Not Reportable Baso % (Auto) Not Reportable Lymph # (Auto) Not Reportable [place] # (Auto) Not Reportable Eos # (Auto) Not Reportable Baso # (Auto) Not Reportable Abs Immat Gran (auto) Not Reportable Absolute Neuts (auto) Not Reportable Absolute Nucleated RBC Not Reportable Total Counted 100 Neutrophils % (Manual) 60 Band Neutrophils % 13 H Lymphocytes % (Manual) 15 L Monocytes % (Manual) 10 H Metamyelocytes % 2 Nucleated RBC % Not Reportable Abs Neuts (Manual) 30.66 H Abs Lymphs (Manual) 6.30 H Abs Monocytes (Manual) 4.20 H Platelet Estimate Increased Hypochromasia Ovalocytes [place] Cells PT 17.0 H INR 1.4 APTT 33.3 D-Dimer 3.16 H Puncture Site Right radial ABG pH 7.105 L* ABG pCO2 81.5 H* ABG pO2 194.4 H ABG PO2/FiO2 Ratio 1.94 ABG HCO3 25.0 ABG O2 Saturation 98.8 ABG O2 Content 11.9 L ABG Base Excess -4.9 A-a Gradient 437.1 Oxyhemoglobin 97.6 Carboxyhemoglobin 0.6 Methemoglobin 0.3 Reduced Hemoglobin 1.5 Total Hemoglobin 8.3 L O2 Delivery Device Ambu bag O2 Liters/Min 15.0 Minute Volume Vent Rate Vent Mode FiO2 100 Tidal Volume PEEP Peak Inspir Pressure Pressure Support Sodium Potassium Chloride Carbon Dioxide Anion Gap BUN Creatinine Estim Creat Clear Calc Estimated GFR Glucose POC Capillary Glucose Hemoglobin A1c Lactic Acid Calcium Phosphorus Magnesium Total Bilirubin Direct Bilirubin AST ALT Alkaline Phosphatase Lactate Dehydrogenase Troponin I C-Reactive Protein Total Protein Albumin Triglycerides Cholesterol Amylase Pleural Fluid Source Pleural Color Pleural Appearance Pleural pH Pleural RBC Pleural Nuc Cells Pleural Neutrophils Pleural Lymphocytes Pleural Monocytes Pleural Macrophages Pleural Total Protein Pleural Albumin Pleural LDH Pleural Glucose Pleural Amylase Pleural Cholesterol Pleural Triglycerides SARS-CoV-2 RNA (RT-PCR) Blood Type Antibody Screen Crossmatch 11/06/19 11/06/19 11/06/19 15:38 15:38 15:38 WBC RBC Hgb Hct MCV MCH MCHC RDW Plt Count MPV Immature Gran % (Auto) Neut % (Auto) Lymph % (Auto) [place] % (Auto) Eos % (Auto) Baso % (Auto) Lymph # (Auto) [place] # (Auto) Eos # (Auto) Baso # (Auto) Abs Immat Gran (auto) Absolute Neuts (auto) Absolute Nucleated RBC Total Counted Neutrophils % (Manual) Band Neutrophils % Lymphocytes % (Manual) Monocytes % (Manual) Metamyelocytes % Nucleated RBC % Abs Neuts (Manual) Abs Lymphs (Manual) Abs Monocytes (Manual) Platelet Estimate Hypochromasia Ovalocytes [place] Cells PT INR APTT D-Dimer Cancelled Puncture Site ABG pH
--- NOTE | 2019-11-07 16:11 | PM.TDS ---
Transfer Discharge Sum: Prov Provider Date of admission: 11/06/19 20:50 Primary care physician: Leona Healy MD Admitting clinician: Adelina Sue DO Consults: 11/06/19 Consult to Physician Routine Comment: Consulting Provider: Michael Dorantes Reason for consultation: respiratory failure, sepsis Has provider been notified: Yes Consult to Physician Routine Comment: Consulting Provider: Neftaly Menendez Reason for consultation: pneumoperitoneum Has provider been notified: Yes DS: Discharge Diagnosis Discharge Diagnosis (1) Septic shock: Code(s): A41.9 - Sepsis, unspecified organism; R65.21 - Severe sepsis with septic shock Status: Acute Assessment and Plan: secondary to empyema and intra-abdominal abscesses. Empirically placed on vancomycin and imipenem. culture still pending with initial blood cultures no growth. maintained on pressures for blood pressure also (2) Intra-abdominal free air of unknown etiology: Code(s): K66.8 - Other specified disorders of peritoneum Status: Acute Assessment and Plan: at surgery found to be secondary to ruptured diaphragm with empyema extending into abdomen (3) Acute respiratory failure with hypoxia and hypercarbia: Code(s): J96.01 - Acute respiratory failure with hypoxia; J96.02 - Acute respiratory failure with hypercapnia Status: Acute Assessment and Plan: secondary to her COPD and possibly even a component of aspiration since she had emesis prior to arrival and the sepsis (4) Elevated troponin: Code(s): R79.89 - Other specified abnormal findings of blood chemistry Status: Acute Assessment and Plan: thought secondary to sepsis and not acute coronary event (5) Cardiac arrest: Code(s): I46.9 - Cardiac arrest, cause unspecified Status: Acute Assessment and Plan: short episode of bradycardia with CV are for very short period time thought again secondary to the sepsis (6) Hyponatremia: Code(s): E87.1 - Hypo-osmolality and hyponatremia Status: Acute Assessment and Plan: chronic. Sodium rarely above 130 over last 4 months (7) COPD with asthma: Code(s): J44.9 - Chronic obstructive pulmonary disease, unspecified Status: Acute Assessment and Plan: continue inhalers and mechanical ventilation (8) Grade II diastolic dysfunction: Code(s): I51.9 - Heart disease, unspecified Status: Inactive Assessment and Plan: appears euvolemic at present time continue to monitor (9) Essential hypertension: Code(s): I10 - Essential (primary) hypertension Status: Acute Assessment and Plan: blood pressure medication on hold with hypotension with sepsis (10) Type 2 diabetes mellitus without complications: Code(s): E11.9 - Type 2 diabetes mellitus without complications Status: Acute Assessment and Plan: sliding scale and continue to monitor (11) Tobacco dependence: Code(s): F17.200 - Nicotine dependence, unspecified, uncomplicated Status: Acute Assessment and Plan: nicotine patches needed (12) Empyema of pleural space: Code(s): J86.9 - Pyothorax without fistula Status: Acute Assessment and Plan: chest tube and with probable loculated effusion with the ruptured hemidiaphragm it was felt the patient better served with thoracic surgery and she was transferred to a higher level of care Transfer Discharge Sum: Med Medications Active and Home Medications: Home Medications amlodipine 5 mg tablet 5 mg PO DAILY 01/09/19 [History Confirmed 11/06/19] cholecalciferol (vitamin D3) 25 mcg (1,000 unit) capsule 1,000 unit PO DAILY 01/09/19 [History Confirmed 11/06/19] montelukast 10 mg tablet 10 mg PO DAILY #90 tablet 02/13/19 [Rx Confirmed 11/06/19] irbesartan 150 mg tablet See Rx Instructions .ROUTE .COMPLEX #90 tablet 07/31/19 [Rx Confirmed 11/05
--- NOTE | 2019-11-07 16:46 | PC.NURSE ---
Patient transfer to outside facility via [facility]. Report called to ROMARIO Dixon
--- NOTE | 2019-11-07 21:56 | ECHO_ITS ---
Patient Info Name: Radha Loja Age: 74 years : 1945 Gender: Female Ht: 62 in Wt: 175 lbs BSA: 1.90 m2 HR: 90 bpm BP: 130 / 48 mmHg Heart Rhythm: Sinus Rhythm Technical Quality: Good Exam Date: 11/07/2019 2:31 PM Exam Location: [facility] Patient Status: Inpatient Admit Date: 11/06/2019 Staff Ordering Physician: Philly Benz PA-C [employer] Technician: Robinson Melendrez RDCS Attending Provider: Adelina Sue DO Referring Physician: Demar ESTEVEZ; Exam Type: CA echo doppler color flow Study Info Indications I46.9 - Cardiac arrest, cause unspecified Complete two-dimensional, color flow and Doppler transthoracic echocardiogram is performed. History/Risk Factors Cardiorespiratory arrest; sepsis, acute respiratory failure, HTN, Dm2, anemai. Summary 1. Complete two-dimensional, color flow and Doppler transthoracic echocardiogram is performed. 2. Left ventricular chamber dimension is normal. 3. Left ventricular systolic function is normal, estimated at 65-70%. 4. There is mildly increased left ventricular wall thickness. 5. Left ventricular septal wall motion is normal. 6. The left ventricular diastolic function is grade II diastolic dysfunction. 7. Right ventricular chamber dimension is mildly enlarged. 8. There is mild tricuspid valve regurgitation. 9. Severe pulmonary hypertension, estimated pulmonary arterial systolic pressure is 71 mmHg. 10. There is small pericardial effusion. Left Ventricle Left ventricular chamber dimension is normal. Left ventricular systolic function is normal, estimated at 65-70%. There is mildly increased left ventricular wall thickness. Left ventricular septal wall motion is normal. The left ventricular diastolic function is grade II diastolic dysfunction. Right Ventricle Right ventricular chamber dimension is mildly enlarged. Right ventricular systolic function is normal. Left Atria Left atrial chamber dimension is mildly enlarged. Right Atria Right atrial chamber dimension is normal. Atrial Septum Intact interatrial septum visualized by color flow imaging. Aortic Valve The aortic valve is trileaflet. There is mild aortic valve sclerosis. There is no aortic valve stenosis. There is trace aortic valve regurgitation. Pulmonic Valve The pulmonic valve is normal. There is no pulmonic valve stenosis. There is trace pulmonic regurgitation. Mitral Valve The mitral valve has thickened leaflets and calcified annulus. There is no mitral valve stenosis. There is trace mitral valve regurgitation. Tricuspid Valve The tricuspid valve leaflets are normal. There is no significant tricuspid valve stenosis. There is mild tricuspid valve regurgitation. Severe pulmonary hypertension, estimated pulmonary arterial systolic pressure is 71 mmHg. Pericardium/Pleural The pericardium appears thickened pericardium. There is small pericardial effusion. Aorta The aortic root size at the sinus of Valsalva is normal. The prox ascending aorta size is normal. Left Ventricular Outflow Tract Name Value Normal LVOT 2D LVOT Diameter 1.9 cm LVOT Doppler
[2019-11-09 20:43] LABS: Glucose Pleural Fluid <10 mg/dL
[2019-11-11 12:05] LABS: Total Protein Pleural Fluid <3.0 g/dL
[2019-11-12 10:28] LABS: Amylase, Pleural Fluid 10 U/L
[2019-11-14 08:16] LABS: Albumin Pleural Fluid 0.6 g/dL
== END 2019-11-07 16:40 | disposition short-term general hospital (02) | DRG 853 ==
LOC: ANHED 20:58 → ANHICU 22:12
PROVIDERS: Internal Medicine; Physician Assistant; Surgery; Admitting Provider Internal Medicine; Emergency Provider Emergency Medicine; PCP Family Medicine; Visit Provider Internal Medicine
PROC: 0WJP0ZZ Inspection of Gastrointestinal Tract, Open Approach (ICD-10-PCS; CPT 49000; principal; 2019-11-06 22:00)
DX: A41.9 Sepsis, unspecified organism (principal); R65.21 Severe sepsis with septic shock; J96.01 Acute respiratory failure with hypoxia; J96.02 Acute respiratory failure with hypercapnia; J86.9 Pyothorax without fistula; I46.9 Cardiac arrest, cause unspecified; K65.1 Peritoneal abscess; E87.1 Hypo-osmolality and hyponatremia; K66.8 Other specified disorders of peritoneum; J44.9 Chronic obstructive pulmonary disease, unspecified; J98.6 Disorders of diaphragm; Z20.828 Contact with and (suspected) exposure to other viral communicable diseases; K66.0 Peritoneal adhesions (postprocedural) (postinfection); I11.0 Hypertensive heart disease with heart failure; I50.9 Heart failure, unspecified; R79.89 Other specified abnormal findings of blood chemistry; E11.9 Type 2 diabetes mellitus without complications; F17.210 Nicotine dependence, cigarettes, uncomplicated; Z86.010 Personal history of colon polyps; Z90.49 Acquired absence of other specified parts of digestive tract
CPT/HCPCS: 31500; 36415; 36430; 36556; 36600; 70450; 71275; 74176; 80048; 80053; 80076; 82040; 82042; 82150; 82375; 82465; 82805; 82945; 83036; 83050; 83605; 83615; 83735; 83986; 84100; 84155; 84157; 84311; 84478; 84484; 85014; 85018; 85025; 85380; 85610; 85730; 86140; 86850; 86900; 86901; 86923; 87015; 87040; 87070; 87075; 87077; 87086; 87102; 87116; 87186; 87205; 87206; 87635; 88104; 88108; 88305; 89051; 92950; 93005; 93306; 94003; 94640; 96365; 96366; 96367; 96368; 96375; 99291; C1751; C9113; C9803; J0171; J0696; J0743; J1265; J1650; J2250; J2370; J2543; J2704; J3010; J3370; J3475; J7030; J7120; P9016; Q9967; U0003